=== PATIENT | female | born 1940 | race Caucasian/White ===

== ENCOUNTER 2018-01-22 17:59 | Emergency (ER) | payer OTHER ==
[2018-01-22 18:12] VITALS: BMI 24.1
--- NOTE | 2018-01-22 18:16 | DR.GENAD ---
HPI - PCP Primary Care Physician: Srinath - Complaint/Symptoms Chief Complaint Doctors Comments: Patient states that she was at the doctors office when she became diaphoretic, weak and dizzy. She denies a history of cardiopulmonary disease. She denies recent illness. Chief Complaint:: Pt states she is feeling very weak, dizzy and like she is spinning - Source History Provided: Patient, Family Member - Mode of Arrival Mode of Arrival: Wheelchair - Timing Onset of Chief Complaint: 01/22/18 PMH - PMH Past Medical History: Yes Past Medical History: Hypothyroidism Past Surgical History: Yes Surgical History: Hysterectomy, Ortho Surgery - Family History History of Family Medical Conditions: Yes Family Medical History: Diabetes Mellitus, Cancer, Hypertension - Social History Does patient currently use any type of tobacco product: No Have you used tobacco products in the last 12 months: No Type of Tobacco Use: None Does any household member use tobacco: No Alcohol Use: None Do you use any recreational Drugs:: No Lives With: Spouse Lives Where: Home - infectious screening In the last 2 months have you had wt loss of >10#?: NO Have you had fever, night sweats or hemotysis?: No Have you traveled outside the country in the last 6 months?: No Isolation: Standard ROS - Review of Systems Eyes: No Symptoms Reported ENTM: No Symptoms Reported, Hearing Loss Cardiovascular: No Symptoms Reported, Chest Pain Genitourinary: No Symptoms Reported Neurological: No Symptoms Reported Musculoskeletal: No Symptoms Reported Integumentary: No Symptoms Reported Hematologic/Lymphatic: No Symptoms Reported Endocrine: No Symptoms Reported Psychiatric: No Symptoms Reported All Other Systems: Reviewed and Negative PE - Vital Signs Vitals: Temperature 96.9 F Pulse Rate 69 Respiratory Rate 16 Blood Pressure 182/89 O2 Sat by Pulse Oximetry 99 - General Limitations: No Limitations General Appearance: Alert, In No Apparent Distress - Head Head Exam: Normal Inspection, Atraumatic - Eyes Eye exam: Normal Appearance, PERRL, EOMI - ENT ENT Exam: Normal Exam External Ear Exam: Normal External Inspection TM/Canal Exam: Bilateral Normal Nose Exam: Normal Nose Exam Mouth Exam: Normal Inspection Throat Exam: Normal Inspection - Neck Neck Exam: Normal Inspection, Full ROM - Chest Chest Inspection: Normal Inspection - Respiratory Respiratory Exam: Normal Lung Sounds Bilat Respiratory Exam: Bilateral Clear to Auscultation - Cardiovascular Cardiovascular Exam: Regular Rate, Normal Rhythm - Abdominal Exam Abdominal Exam: Normal Inspection, Normal Bowel Sounds Abdominal Tenderness: negative: RUQ, RLQ, LUQ, LLQ, Epigastrium, Suprapubic, Diffuse, Mild, Moderate, Severe, Other - Extremities Extremities Exam: Normal Inspection, Full ROM - Back Back Exam: Normal Inspection, Full ROM - Neurologic Neurological Exam: Alert, Oriented X3, CN II-XII Intact - Psychiatric Psychiatric Exam: Normal Affect - Skin Skin Exam: Warm, Dry, Intact Course - Reevaluation 1st: Improved - Education/Counseling Educated On: Treatment, Diagnosis, Prognosis, Needs for Follow Up ROR - Labs Reviewed Result Diagrams: 01/22/18 18:25 01/22/18 18: Laboratory: WBC 4.1 X10^3/uL (3.6-10.0) 01/22/18 18: RBC 4.05 X10^6/uL (3.5-5.4) 01/22/18 18: Hgb 12.2 g/dL (12.0-16.0) 01/22/18: Hct 36.3 % (36.0-47.0) 01/22/18: MCV 89.6 fL (80.0-100.0) 01/22/18 18: MCH 30.2 pg (27.0-34.0) 01/22/18 18: MCHC 33.7 g/dL (33.0-35.0) 01/22/18 18: RDW 13.5 % (11.6-16.5) 01/22/18: Plt Count 169 X10^3/uL (150.0-450.0) 01/22/18: MPV 9.0 fL (7.4-11.0) 01/22/18 18: Neut % (Auto) 73.6 % (42.0-75.0) 01/22/18: Lymph % (Auto) 19.2 % (21.0-51.0) L 01/22/18: [place] % (Auto) 7.1 % (0.0-13.0) 01/22/18 18: Eos % (Auto) 0.0 % (0.9-2.9) L 01/22/18 18: Baso % (Auto) 0.1 % (0.2-1.0) L 01/22/18 18:25 Neut # (Auto) 3.0 x10^3/uL (2.2-4.8) 01/22/18 18:25 Lymph # (Auto) 0.8 X10^3/uL (1.3-2.9) L 01/22/18 18:25 [place] # (Auto) 0.3 x10^3/uL (0.3-0.8) 01/22/18 18:25 Eos # (Auto) 0.0 x10^3/uL (0.0-0.2) 01/22/18 18:25 Baso # (Auto) 0.0 X10^3/uL (0.0-0.1) 01/22/18 18:25 Absolute Nucleated RBC 0.1 /100WBC 01/22/18 18:25 D-Dimer 151 ng/mL (0-400) 01/22/18 18:25 Sodium 137 mmol/L (136-145) 01/22/18 18:25 Corrected Sodium 139 mmol/L (136-145) 01/22/18 18:25 Potassium 4.6 mmol/L (3.5-5.1) 01/22/18 18:25 Chloride 105 mmol/L (98-107) 01/22/18 18:25 Carbon Dioxide 21.7 mmol/L (21-32) 01/22/18 18:25 BUN 24 mg/dL (7-18) H 01/22/18 18:25 Creatinine 1.81 mg/dL (0.55-1.02) H 01/22/18 18:25 Est GFR (MDRD) Af Amer 35 (>60) L 01/22/18 18:25 Est GFR (MDRD) Non-Af 29 (>60) L 01/22/18 18:25 Glucose 179 mg/dL (65-99) H 01/22/18 18:25 Calcium 10.2 mg/dL (8.5-10.1) H 01/22/18 18:25 Corrected Calcium TNP 01/22/18 18:25 Total Bilirubin 0.40 mg/dL (0.2-1.0) 01/22/18 18:25 AST 16 Units/L (15-37) 01/22/18 18:25 ALT 17 Units/L (12-78) 01/22/18 18:25 Alkaline Phosphatase 84 Units/L (46-116) 01/22/18 18:25 Creatine Kinase 45 Units/L (26-192) 01/22/18 18:25 CK-MB (CK-2) 1.8 ng/mL (0-4.0) 01/22/18 18:25 CK/CKMB % Calc 4.0 % (<4) 01/22/18 18:25 Troponin I < 0.02 ng/mL (0-1.5) 01/22/18 18:25 Total Protein 7.3 g/dL (6.4-8.2) 01/22/18 18:25 Albumin 4.1 g/dL (3.4-5.0) 01/22/18 18:25 Globulin 3.2 g/dL (2.5-4.5) 01/22/18 18:25 Albumin/Globulin Ratio 1.3 Ratio (1.1-2.1) 01/22/18 18:25 TSH 3rd Generation 0.232 uIU/mL (0.358-3.74) L 01/22/18 18:25 - XRAY XRAY Interpreted by: Radiologist (Chest: No acute cardiopulmonary abnormality; CT Brain: Manzanares-white differentiation is maintained. No visible acute infarct, intracranial hemorrhage, focal or generalized edema, extra-axial collection, hydrocehalus or mass is identified. There is moderate mucosal thickening of the left sphenoid sinus and partial opacification of bilaterall mastoid air cells. The remaining visualized paranasal sinuses are clear. The extracranial structures are grossly unremarkable. Impression: No acute intracranial abnormality. Chronic left sphenoid sinusisis and partial opacification of the bilateral mastoic air cells. Correlate clinically mastoiditis.) - EKG [place]: Normal Rhythm: NSR Block: None Hypertrophy: None ST: Normal - Diagnosis Discharge Problem: Hypothyroidism Qualifiers: Hypothyroidism type: unspecified Qualified Code(s): E03.9 - Hypothyroidism, unspecified Sphenoid sinusitis Qualifiers: Chronicity: acute Recurrence: not specified as recurrent Qualified Code(s): J01.30 - Acute sphenoidal sinusitis, unspecified - Discharge Plan Condition: Stable - Follow ups/Referrals Follow ups/Referrals: Perfecto Yo [Primary Care Provider] - 3 days - Instructions
[2018-01-22 18:35] LABS: BASOPHILS % (AUTO) 0.1 % (0.2-1.0); HEMATOCRIT 36.3 % (36.0-47.0); HEMOGLOBIN 12.2 g/dL (12.0-16.0); LYMPHOCYTES # (AUTO) 0.8 X10^3/uL (1.3-2.9); LYMPHOCYTES % (AUTO) 19.2 % (21.0-51.0); MEAN CORPUSCULAR HEMOGLOBIN 30.2 pg (27.0-34.0); MEAN CORPUSCULAR HGB CONC 33.7 g/dL (33.0-35.0); MEAN CORPUSCULAR VOLUME 89.6 fL (80.0-100.0); MONOCYTES # (AUTO) 0.3 x10^3/uL (0.3-0.8); MONOCYTES % (AUTO) 7.1 % (0.0-13.0); NEUTROPHILS % (AUTO) 73.6 % (42.0-75.0); PLATELET COUNT 169 X10^3/uL (150.0-450.0); RED BLOOD COUNT 4.05 X10^6/uL (3.5-5.4); RED CELL DISTRIBUTION WIDTH 13.5 % (11.6-16.5); WHITE BLOOD COUNT 4.1 X10^3/uL (3.6-10.0)
--- NOTE | 2018-01-22 18:43 | CT ---
CT head without contrast Indication: Weakness, dizziness Technique: Helical CT images of the brain were obtained without IV contrast. Reformatted images in th e coronal and sagittal planes were also generated for review. Comparison: None Findings: Manzanares-white differentiation is maintained. No visible acute infarct, intracranial hemorrhage , focal or generalized edema, extra-axial collection, hydrocephalus or mass is identified. There is m oderate mucosal thickening of the left sphenoid sinus and partial opacification of the bilateral mast oid air cells. The remaining visualized paranasal sinuses are clear. The extracranial structures are grossly unremarkable. Impression: No acute intracranial abnormality. Chronic left sphenoid sinusitis and partial opacification of the bilateral mastoid air cells. Correla te clinically mastoiditis. Reported By:
--- NOTE | 2018-01-22 18:48 | RAD ---
AP Chest Indication: Weakness and dizziness Comparison: None available Findings: The trachea is midline. The cardiac silhouette is unremarkable. The lungs are clear without focal i nfiltrate or effusion. The bony thorax is unremarkable. IMPRESSION: 1. No acute cardiopulmonary abnormality. Reported By:
[2018-01-22 18:53] LABS: BLOOD UREA NITROGEN 24 mg/dL (7-18); CALCIUM 10.2 mg/dL (8.5-10.1); CARBON DIOXIDE 21.7 mmol/L (21-32); CHLORIDE 105 mmol/L (98-107); COR NA(FOR HYPERGLY) 139 mmol/L (136-145); CREATININE 1.81 mg/dL (0.55-1.02); SODIUM 137 mmol/L (136-145); TROPONIN I < 0.02 ng/mL (0-1.5); eGFR BLACK RACES 35 (>60); eGFR NON BLACK RACES 29 (>60)
[2018-01-22 18:58] LABS: ALANINE AMINOTRANSFERASE 17 Units/L (12-78); ALBUMIN 4.1 g/dL (3.4-5.0); ALKALINE PHOSPHATASE 84 Units/L (46-116); ASPARTATE AMINO TRANSFERASE 16 Units/L (15-37); CREATINE KINASE 45 Units/L (26-192); CREATINE KINASE MB 1.8 ng/mL (0-4.0); TOTAL PROTEIN 7.3 g/dL (6.4-8.2); TSH (3RD GENERATION) 0.232 uIU/mL (0.358-3.74)
[2018-01-22 19:26] LABS: BILIRUBIN,URINE NEGATIVE (NEGATIVE); BLOOD/HEMOGLOBIN,URINE 1+ (NEGATIVE); GLUCOSE, URINE NEGATIVE (NEGATIVE); KETONES,URINE NEGATIVE (NEGATIVE); LEUKOCYTE ESTERASE ,URINE NEGATIVE (NEGATIVE); NITRITES,URINE NEGATIVE (NEGATIVE); PROTEIN,URINE NEGATIVE (NEGATIVE); UROBILINOGEN,URINE NORMAL (NORMAL)
[2018-01-22 19:27] LABS: APPEARANCE,URINE CLEAR (CLEAR); COLOR,URINE YELLOW (YELLOW)
[2018-01-22] MEDS ORDERED: LR 1000 ML IV 1,000 ML IV ONE ×2 (19:32→19:34)
[2018-01-22 19:33] LABS: BACTERIA,URINE NEGATIVE /HPF (NEGATIVE); RBC,URINE 0-2 /HPF (NONE SEEN); SQUAMOUS EPITHELIAL CELL,UR RARE /HPF (NEGATIVE)
[2018-01-22 21:03] VITALS: BP 160/67
== END 2018-01-22 21:00 | disposition home or self-care (01) ==
LOC: ER 18:04
DX: E86.0 Dehydration (principal); E03.9 Hypothyroidism, unspecified; J01.80 Other acute sinusitis; R42 Dizziness and giddiness
CPT/HCPCS: 36415; 70450; 71045; 80053; 81001; 82550; 82553; 84443; 84484; 85025; 85378; 93005; 93010; 96365; 99283; 99284; A4222; J7120

== ENCOUNTER 2023-06-12 12:22 | Inpatient (IN) ==
--- NOTE | 2023-06-12 12:35 | DR.AMS ---
HPI Time Seen Time Seen by Provider: 06/12/23 12:35 Reviewed Nurses Notes Reviewed: Yes PMH PMH Past Medical History: Alzheimers, GERD and Hypothyroidism Past Surgical History: Yes Surgical History: Hysterectomy and Ortho Surgery Family History Family Medical History: Diabetes Mellitus, Cancer and Hypertension Social History Do you use any recreational Drugs:: No PE Vitals Vital Signs: Temp Pulse Resp BP Pulse Ox O2 Del Method 06/12/23 14:02 64 99 06/12/23 13:49 82 L 06/12/23 13:31 128/59 06/12/23 13:31 128/59 06/12/23 13:15 71 100 06/12/23 13:09 68 100 06/12/23 12:40 98.1 F 73 20 163/74 100 Room Air ROR Labs Reviewed 06/12/23 12:40 06/12/23 12:40 Laboratory: WBC 6.1 X10^3/uL (3.6-10.0) 06/12/23 12:40 RBC 3.83 X10^6/uL (3.5-5.4) 06/12/23 12:40 Hgb 11.5 g/dL (12.0-16.0) L 06/12/23 12:40 Hct 34.0 % (36.0-47.0) L 06/12/23 12:40 MCV 88.8 fL (80.0-100.0) 06/12/23 12:40 MCH 30.0 pg (27.0-34.0) 06/12/23 12:40 MCHC 33.8 g/dL (33.0-35.0) 06/12/23 12:40 RDW 14.8 % (11.6-16.5) 06/12/23 12:40 Plt Count 239 X10^3/uL (150.0-450.0) 06/12/23 12:40 MPV 9.2 fL (7.4-11.0) 06/12/23 12:40 Neut % (Auto) 56.5 % (42.0-75.0) 06/12/23 12:40 Lymph % (Auto) 36.6 % (21.0-51.0) 06/12/23 12:40 [place] % (Auto) 6.5 % (0.0-13.0) 06/12/23 12:40 Eos % (Auto) 0.1 % (0.9-2.9) L 06/12/23 12:40 Baso % (Auto) 0.3 % (0.2-1.0) 06/12/23 12:40 Neut # (Auto) 3.5 x10^3/uL (2.2-4.8) 06/12/23 12:40 Lymph # (Auto) 2.2 X10^3/uL (1.3-2.9) 06/12/23 12:40 [place] # (Auto) 0.4 x10^3/uL (0.3-0.8) 06/12/23 12:40 Eos # (Auto) 0.0 x10^3/uL (0.0-0.2) 06/12/23 12:40 Baso # (Auto) 0.0 X10^3/uL (0.0-0.1) 06/12/23 12:40 Absolute Nucleated RBC 0.1 /100WBC 06/12/23 12:40 Sodium 140 mmol/L (136-145) 06/12/23 12:40 Corrected Sodium TNP 06/12/23 12:40 Potassium 5.5 mmol/L (3.5-5.1) H 06/12/23 12:40 Chloride 112 mmol/L (98-107) H 06/12/23 12:40 Carbon Dioxide 17.2 mmol/L (21-32) L 06/12/23 12:40 BUN 29 mg/dL (7-18) H 06/12/23 12:40 Creatinine 2.49 mg/dL (0.55-1.02) H 06/12/23 12:40 Est GFR (MDRD) Af Amer 24 (>60) L 06/12/23 12:40 Est GFR (MDRD) Non-Af 20 (>60) L 06/12/23 12:40 Glucose 75 mg/dL (65-99) 06/12/23 12:40 Calcium 10.4 mg/dL (8.5-10.1) H 06/12/23 12:40 Corrected Calcium TNP 06/12/23 12:40 Total Bilirubin 0.50 mg/dL (0.2-1.0) 06/12/23 12:40 AST 37 Units/L (15-37) 06/12/23 12:40 ALT 21 Units/L (12-78) 06/12/23 12:40 Alkaline Phosphatase 92 Units/L (46-116) 06/12/23 12:40 Creatine Kinase 86 Units/L (26-192) 06/12/23 12:40 Troponin I High Sens 47.0 ng/L (4.0-60.0) 06/12/23 12:40 Total Protein 7.0 g/dL (6.4-8.2) 06/12/23 12:40 Albumin 3.5 g/dL (3.4-5.0) 06/12/23 12:40 Globulin 3.5 g/dL (2.5-4.5) 06/12/23 12:40 Albumin/Globulin Ratio 1.0 Ratio (1.1-2.1) L 06/12/23 12:40 Specimen Type Catherized urine 06/12/23 12:47 Urine Color Yellow (YELLOW) 06/12/23 12:47 Urine Appearance Cloudy (CLEAR) 06/12/23 12:47 Urine pH 6.0 (5.0 - 8.0) 06/12/23 12:47 Ur Specific [place] 1.015 (1.000-1.030) 06/12/23 12:47 Urine Protein 2+ (NEGATIVE) 06/12/23 12:47 Urine Glucose (UA) Negative (NEGATIVE) 06/12/23 12:47 Urine Ketones Negative (NEGATIVE) 06/12/23 12:47 Urine Blood 1+ (NEGATIVE) 06/12/23 12:47 Urine Nitrite Positive (NEGATIVE) 06/12/23 12:47 Urine Bilirubin Negative (NEGATIVE) 06/12/23 12:47 Urine Urobilinogen Normal (NORMAL) 06/12/23 12:47 Ur Leukocyte Esterase 2+ (NEGATIVE) 06/12/23 12:47 Urine RBC 3-5 /HPF (0-3) A 06/12/23 12:47 Urine WBC 10-20 /HPF (0-5) A 06/12/23 12:47 Ur Squamous Epith Cells Rare /HPF (NEGATIVE) 06/12/23 12:47 Urine Bacteria 1+ /HPF (NEGATIVE) 06/12/23 12:47 Ur Culture Indicated? Yes/culture set up 06/12/23 12:47 Opioid Opioid Risk Tool Age (Hugo box if 16-45): No History of Preadolescent Sexual Abuse: No Total: 0 Total Score Risk Category: Low Risk Copyright: Ba ESCOBEDO predicting aberrant behaviors Discharge Plan Diagnosis Discharge Problem: Acute dehydration, URI, acute, Altered mental status, Weakness Discharge Plan Patient Disposition: 01 HOME, SELF-CARE Condition: Stable Orders to Discharge Patient Discharge Orders: Transfer (Routine); Ordered 06/12/23 Ordered By: MELISA UNDERWOOD
[2023-06-12 13:00] LABS: BILIRUBIN,URINE NEGATIVE (NEGATIVE); BLOOD/HEMOGLOBIN,URINE 1+ (NEGATIVE); GLUCOSE, URINE NEGATIVE (NEGATIVE); KETONES,URINE NEGATIVE (NEGATIVE); LEUKOCYTE ESTERASE ,URINE 2+ (NEGATIVE); NITRITES,URINE POSITIVE (NEGATIVE); PROTEIN,URINE 2+ (NEGATIVE); UROBILINOGEN,URINE NORMAL (NORMAL)
[2023-06-12 13:13] LABS: APPEARANCE,URINE CLOUDY (CLEAR); COLOR,URINE YELLOW (YELLOW)
[2023-06-12 13:14] LABS: BACTERIA,URINE 1+ /HPF (NEGATIVE); SQUAMOUS EPITHELIAL CELL,UR RARE /HPF (NEGATIVE)
[2023-06-12 13:34] LABS: BASOPHILS % (AUTO) 0.3 % (0.2-1.0); EOSINOPHILS % (AUTO) 0.1 % (0.9-2.9); HEMOGLOBIN 11.5 g/dL (12.0-16.0); LYMPHOCYTES # (AUTO) 2.2 X10^3/uL (1.3-2.9); LYMPHOCYTES % (AUTO) 36.6 % (21.0-51.0); MEAN CORPUSCULAR HGB CONC 33.8 g/dL (33.0-35.0); MEAN CORPUSCULAR VOLUME 88.8 fL (80.0-100.0); MEAN PLATELET VOLUME 9.2 fL (7.4-11.0); MONOCYTES # (AUTO) 0.4 x10^3/uL (0.3-0.8); MONOCYTES % (AUTO) 6.5 % (0.0-13.0); NEUTROPHILS # (AUTO) 3.5 x10^3/uL (2.2-4.8); NEUTROPHILS % (AUTO) 56.5 % (42.0-75.0); PLATELET COUNT 239 X10^3/uL (150.0-450.0); RED BLOOD COUNT 3.83 X10^6/uL (3.5-5.4); RED CELL DISTRIBUTION WIDTH 14.8 % (11.6-16.5); WHITE BLOOD COUNT 6.1 X10^3/uL (3.6-10.0)
[2023-06-12 13:49] LABS: ALANINE AMINOTRANSFERASE 21 Units/L (12-78); ALBUMIN 3.5 g/dL (3.4-5.0); ALKALINE PHOSPHATASE 92 Units/L (46-116); ASPARTATE AMINO TRANSFERASE 37 Units/L (15-37); BLOOD UREA NITROGEN 29 mg/dL (7-18); CALCIUM 10.4 mg/dL (8.5-10.1); CARBON DIOXIDE 17.2 mmol/L (21-32); CHLORIDE 112 mmol/L (98-107); CREATINE KINASE 86 Units/L (26-192); CREATININE 2.49 mg/dL (0.55-1.02); GLUCOSE 75 mg/dL (65-99); SODIUM 140 mmol/L (136-145); eGFR NON BLACK RACES 20 (>60)
[2023-06-12 13:50] LABS: POTASSIUM 5.5 mmol/L (3.5-5.1)
--- NOTE | 2023-06-12 13:58 | EKG ---
Test Reason : HYPERTENSION Blood Pressure : */* mmHG Vent. Rate : 68 BPM Atrial Rate : 68 BPM P-R Int : 194 ms QRS Dur : 78 ms QT Int : 366 ms P-R-T Axes : 39 -9 36 degrees QTc Int : 389 ms Normal sinus rhythm Septal infarct , age undetermined Abnormal ECG No previous ECGs available Confirmed by Prashant Sotelo ([id number]) on 06/13/2023 8:03:59 AM Referred By: Confirmed By: Prashant Sotelo
--- NOTE | 2023-06-12 14:09 | RAD ---
HISTORYAltered mental statusSTUDYChest AP portableCOMPARISONNoneFINDINGSHeart is enlarged. No congestive heart failure is noted. Aorta is ectatic. Lung castellon are clear. No pleural effusions are identified. Bony thorax is unremarkable.IMPRESSIONCardiomegaly without congestive heart failureLungs clearElectronically signed by: CADENCE CHEN (Jun 12, 2023 14:01:39)
--- NOTE | 2023-06-12 14:09 | CT ---
HISTORYAltered mental statusSTUDYCT brain without contrastCOMPARISONNone availableTECHNIQUEMultiple axial images of the brain were obtained from the skull base to the vertex [without] administration of IV contrast.Dose reduction techniques including Automated Exposure Control (AEC) and adjustment of mA and kV were utlized.FINDINGS[No acute intraparenchymal hemorrhage or mass can be identified.] [No extra-axial fluid collections are seen.] [No alteration in the attenuation of the brain parenchyma can be identified to suggest acute or subacute ischemic change.] Mild small vessel ischemic changes and moderate cortical atrophy are noted. [The ventricular system is symmetric and nondilated.] [The extracranial structures are grossly unremarkable.]IMPRESSION[No acute intracranial process can be identified.]Electronically signed by: ISABEL DIXON (Jun 12, 2023 14:01:45)
[2023-06-12] MEDS ORDERED: NS 1,000 ML IV 1,000 ML ONE (15:42)
[2023-06-12] MEDS ORDERED: ROCEPHIN VIAL 1 GRAM ONE (15:42)
[2023-06-12] MEDS ORDERED: ROCEPHIN VIAL 1 GRAM IVP SCH (15:45)
[2023-06-12] MEDS: NS 1,000 ML IV 1,000 ML IV SCH (15:49)
[2023-06-12] MEDS ORDERED: PROTONIX TAB 40 MG PO SCH (21:00)
[2023-06-12] MEDS: MEGACE PO SCH (21:05)
[2023-06-12] MEDS: EXELON PO SCH (21:05)
[2023-06-12] MEDS ORDERED: VALIUM INJ IVP PRN (21:12)
[2023-06-12] MEDS ORDERED: RESTORIL CAP 15 MG PO PRN (21:12)
[2023-06-13] MEDS: NS 1,000 ML IV 1,000 ML IV SCH ×3 (00:45→17:10)
[2023-06-13 05:23] LABS: BASOPHILS % (AUTO) 0.5 % (0.2-1.0); EOSINOPHILS % (AUTO) 0.1 % (0.9-2.9); HEMATOCRIT 30.2 % (36.0-47.0); HEMOGLOBIN 10.4 g/dL (12.0-16.0); LYMPHOCYTES # (AUTO) 2.1 X10^3/uL (1.3-2.9); LYMPHOCYTES % (AUTO) 32.5 % (21.0-51.0); MEAN CORPUSCULAR HEMOGLOBIN 30.3 pg (27.0-34.0); MEAN CORPUSCULAR HGB CONC 34.4 g/dL (33.0-35.0); MEAN PLATELET VOLUME 8.1 fL (7.4-11.0); MONOCYTES # (AUTO) 0.3 x10^3/uL (0.3-0.8); MONOCYTES % (AUTO) 5.1 % (0.0-13.0); NEUTROPHILS % (AUTO) 61.8 % (42.0-75.0); PLATELET COUNT 217 X10^3/uL (150.0-450.0); RED BLOOD COUNT 3.43 X10^6/uL (3.5-5.4); RED CELL DISTRIBUTION WIDTH 14.8 % (11.6-16.5); WHITE BLOOD COUNT 6.5 X10^3/uL (3.6-10.0)
[2023-06-13 05:41] LABS: ALANINE AMINOTRANSFERASE 17 Units/L (12-78); ALBUMIN 3.1 g/dL (3.4-5.0); ALKALINE PHOSPHATASE 84 Units/L (46-116); ASPARTATE AMINO TRANSFERASE 19 Units/L (15-37); BLOOD UREA NITROGEN 25 mg/dL (7-18); CALCIUM 9.7 mg/dL (8.5-10.1); CARBON DIOXIDE 16.7 mmol/L (21-32); CHLORIDE 112 mmol/L (98-107); COR CA(FOR HYPOALB) 10.4 mg/dL (8.5-10.1); CREATININE 2.19 mg/dL (0.55-1.02); GLUCOSE 90 mg/dL (65-99); POTASSIUM 4.5 mmol/L (3.5-5.1); SODIUM 141 mmol/L (136-145); TOTAL PROTEIN 6.3 g/dL (6.4-8.2); eGFR NON BLACK RACES 23 (>60)
[2023-06-13] MEDS: EXELON PO SCH ×3 (06:26→21:10)
[2023-06-13] MEDS ORDERED: ZYPREXA IM ONE (08:15)
[2023-06-13] MEDS: ROCEPHIN VIAL 1 GRAM 1 G in NS 100 ML IV 100 ML IV SCH (09:36)
[2023-06-13] MEDS: PROTONIX INJ 40 MG VIAL IVP SCH ×2 (09:36→21:13)
[2023-06-13] MEDS ORDERED: HALDOL INJ IM PRN (10:38)
[2023-06-13] MEDS: COZAAR PO SCH (12:21)
[2023-06-13] MEDS: MEGACE PO SCH ×2 (12:21→21:09)
[2023-06-13] MEDS: LOVENOX INJ 30 MG SYR SC SCH (12:22)
--- NOTE | 2023-06-13 13:31 | DR.H&P ---
H&P - History & Physical for Day of: H&P Date: 06/12/23 - Chief Complaint Chief Complaint: AMS, WEAKNESS - History of Present Illness History of Present Illness: IS A 83 YEAR OLD PATIENT OF OURS. SHE PRESENTED TO THE ER WITH HER FAMILY REPORTING THAT SHE HAS HAD INCREASED CONFUSION OVER THE PAST 2-3 DAYS. SHE DOES HAVE A CURRENT HX OF END STAGE DEMENTIA, HOWEVER, FAMILY REPORTS THAT SYMPTOMS ARE WORSENING. THEY SEEM TO THINK THAT HER SPEECH HAS CHANGED AND THAT SHE IS SLURRING WORDS MORE THAN NORMAL. THEY ALSO REPORT THAT PATIENT FELL AT HOME LAST WEEK AND HAS BEEN COMPLAINING OF LOW BACK PAIN AND BILATERAL HIP PAIN. PATIENT LIVES AT HOME ALONE WITH HER SPOUSE. THEY DO HAVE A SITTER THAT STAYS FOR THE MAJORITY OF THE DAYTIME HOURS. PATIENTS DAUGHTER AND SPOUSE EXPRESS CONCERNS THAT THEY MAY NO LONGER BE ABLE TO PHYSICALLY PROVIDE CARE FOR PATIENT IN THE HOME, IT HAS BECOME TOO PHYSICALLY DEMANDING FOR THE SPOUSE. HER PMH INCLUDES: ALZHEIMERS, DEMENTIA, GERD, HYPOTHYROIDISM, AND HYSTERECTOMY. ON ARRIVAL TO THE HOSPITAL, HER VITALS WERE: 98.1-73-20-100%-163/74. LABS WERE OBTAINED. WBC 6.1, RBC 3.83, HGB 11.5, HCT 34.0, PLT COUNT 239, SODIUM 140, POTASSIUM 5.5, CHLORIDE 112, CARBON DIOXIDE 17.2, BUN 29, CREATININE 2.49, GLUCOSE 75, CALCIUM 10.4, TOTAL BILI 0.50, AST 37, ALT 21, ALK PHOS 92, CREATINE KINASE 86, TOTAL PROTEIN 7.0, ALBUMIN 3.5. URINALYSIS WAS OBTAINED AND REVEALED: WBC 10-20, RBC 3-5, BACTERIA 1+, LEUKOCYTES 2+, NITRITE POSITIVE. A URINE CULTURE WAS SET UP. A BRAIN CT WITHOUT CONTRAST WAS OBTAINED AND REVEALED: No acute intracranial process can be identified. A CHEST XRAY WAS OBTAINED AND REVEALED: Cardiomegaly without congestive heart failure. Lungs clear. EKG WAS OBTAINED AND REVEALED: NORMAL SINUS RHYTHM WITH HR 68 BPM. IN THE ER, SHE WAS GIVEN ROCPEPHIN 1G IV X 1. SHE WAS ADMITTED TO THE HOSPITAL FOR FURTHER EVALUATION AND TREATMENT OF DEHYDRATION, UTI, GENERALIZED WEAKNESS, ALTERED MENTAL STATUS. SHE WAS STARTED ON NORMAL SALINE AT 125 ML/HR, ROCEPHIN 1G IV DAILY, PROTONIX 40MG IV BID, LOVENOX 30MG SC DAILY, HALDOL 2.5MG M Q4H PRN. HER HOME MEDICATIONS OF ZYPREXA, LOSARTAN, MEGACE, RIVASTIGMINE WERE RESUMED. WE WILL OBTAIN A LUMBAR SPINE XRAY AND BILATERAL HIP XRAYS DUE TO PERSISTENT PAIN SINCE FALL. OTHERWISE, WE WILL FOLLOW UP WITH AM LABS AND CONTINUE TO MONITOR. TIME SPENT ON CLINICAL ASSESSMENT, REVIEWING LABS AND IMAGING, DECISION MAKING, AND DOCUMENTATION GREATER THAN 75 MINUTES. - Past Medical History Past Medical History: Alzheimers, Dementia, GERD, Hypothyroidism - Past Surgical History Surgical History: Hysterectomy, Ortho Surgery - Family History Family Medical History: Diabetes Mellitus, Cancer, Hypertension - Social History Does patient currently use any type of tobacco product: No Have you used tobacco products in the last 12 months: No Type of Tobacco Use: None Does any household member use tobacco: No Alcohol Use: None Drug Use: None - Review of Systems Constitutional: Weakness Eyes: No Symptoms Reported ENT: No Symptoms Reported Respiratory: No Symptoms Reported Cardiovascular: No Symptoms Reported Gastrointestinal: No Symptoms Reported Genitourinary: No Symptoms Reported Musculoskeletal: Back Pain, Other (BILATERAL HIP PAIN ) Skin: No Symptoms Reported Neurological: Weakness Oriented: Not Oriented Eyes: Normal Ear: Normal Nose: Normal Throat: Normal Respiratory: Diminished Throughout Cardiovascular: Normal : Normal Auscultation: Bowel Sounds: Normal Palpation: Normal Tenderness: Normal Skin: Decreased Turgur Musculoskeletal: Right, Left, Hip, Back:Lumbar, Tender Psychiatric: Other Mood Description: Anxious Affect: Anxious Speech Pattern: Inappropriate - Assessment/Plan (1) Acute dehydration Status: Acute Plan: ADMIT, NORMAL SALINE AT 125 ML/HR, ROCEPHIN 1G IV DAILY, PROTONIX 40MG IV BID, LOVENOX 30MG SC DAILY, HALDOL 2.5MG M Q4H PRN. HER HOME MEDICATIONS OF ZYPREXA, LOSARTAN, MEGACE, RIVASTIGMINE WERE RESUMED. (2) Urinary tract infection Qualifiers: Urinary tract infection type: acute cystitis Hematuria presence: without hematuria Qualified Code(s): N30.00 - Acute cystitis without hematuria Status: Acute (3) Altered mental status Qualifiers: Altered mental status type: transient alteration of awareness Status: Acute (4) Generalized weakness Status: Acute (5) Dementia Qualifiers: Dementia type: Alzheimer's Alzheimer's disease onset: unspecified onset Dementia severity: severe Dementia behavioral or psychological symptom: with agitation Qualified Code(s): G30.9 - Alzheimer's disease, unspecified; F02.C11 - Dementia in other diseases classified elsewhere, severe, with agitation Status: Chronic (6) GERD (gastroesophageal reflux disease) Qualifiers: Esophagitis presence: esophagitis presence not specified Qualified Code(s): K21.9 - Gastro-esophageal reflux disease without esophagitis Status: Chronic (7) HTN (hypertension) Qualifiers: Hypertension type: primary hypertension Qualified Code(s): I10 - Essential (primary) hypertension Status: Chronic - Allergies Allergies/Adverse Reactions: Allergies Allergy/AdvReac Type Severity Reaction Status Date / Time No Known Allergies Allergy Verified 04/17/19 14:28 - Medications Home Medications: Home Medications Medication Instructions Recorded Confirmed losartan 50 mg tablet 50 mg PO DAILY 06/12/23 06/12/23 olanzapine 2.5 mg tablet 2.5 mg PO BID 06/12/23 06/12/23 rivastigmine tartrate 3 mg capsule 3 mg PO TID 06/12/23 06/12/23 Previous Rx's Medication Instructions Recorded megestrol 40 mg tablet 40 mg PO BID #60 tabs 03/09/18 pantoprazole 40 mg tablet,delayed 40 mg PO BID #60 tabs 03/09/18 release (Protonix)
--- NOTE | 2023-06-13 16:42 | RAD ---
EXAM:X-ray pelvis and bilateral hips, AP view pelvis and frogleg lateral views of the hipsHISTORY:PAIN, FALL, altered mental status-COMPARISON:CT 12/01/2022FINDINGS:No widening of the symphysis pubis or SI joints.Study is limited due to difficulty positioning the patient.Mild arthritic changes are seen in the hips.No fracture or dislocation is seen.IMPRESSION:Limited exam reveals no fracture. Consider further evaluation with pelvic CT if suspicion for fracture persists.THIS IS AN ELECTRONICALLY VERIFIED FINAL REPORT06/13/2023 4:39 PM - Electronically signed by Mitul Andrew MD
--- NOTE | 2023-06-13 16:47 | RAD ---
EXAM:X-ray lumbar spine five viewsHISTORY:PAIN, altered mental status, fall-COMPARISON:None.FINDINGS:Study is limited due to patient's size and difficulty positioning the patient. There is mild dextroscoliosis in the lower lumbar spine that is probably chronic given the large left lateral osteophytes at L4-5. There is mild retrolisthesis of L 3 with respect to L4 and L2 likely from arthritic facet changes. However, pars defect can not be completely excluded. Vacuum disc phenomena is seen at L3-4. No compression fracture is seen.IMPRESSION:Exam is limited. Scoliosis is probably chronic. L3 retrolisthesis is probably from arthritic facet changes. No fracture is identified. Consider evaluation with CT if suspicion for fracture persists.THIS IS AN ELECTRONICALLY VERIFIED FINAL REPORT06/13/2023 4:43 PM - Electronically signed by Mitul Andrew MD
[2023-06-13] MEDS: HALDOL INJ IVP PRN ×2 (17:05→21:14)
[2023-06-14] MEDS: NS 1,000 ML IV 1,000 ML IV SCH ×3 (00:36→17:04)
[2023-06-14] MEDS: HALDOL INJ IVP PRN ×2 (01:02→18:52)
[2023-06-14] MEDS: EXELON PO SCH (05:14)
[2023-06-14 05:19] LABS: BASOPHILS % (AUTO) 0.1 % (0.2-1.0); EOSINOPHILS % (AUTO) 0.1 % (0.9-2.9); HEMATOCRIT 31.2 % (36.0-47.0); HEMOGLOBIN 10.8 g/dL (12.0-16.0); LYMPHOCYTES # (AUTO) 2.1 X10^3/uL (1.3-2.9); LYMPHOCYTES % (AUTO) 33.1 % (21.0-51.0); MEAN CORPUSCULAR HEMOGLOBIN 30.2 pg (27.0-34.0); MEAN CORPUSCULAR HGB CONC 34.6 g/dL (33.0-35.0); MEAN CORPUSCULAR VOLUME 87.5 fL (80.0-100.0); MEAN PLATELET VOLUME 8.9 fL (7.4-11.0); MONOCYTES # (AUTO) 0.2 x10^3/uL (0.3-0.8); MONOCYTES % (AUTO) 3.7 % (0.0-13.0); PLATELET COUNT 216 X10^3/uL (150.0-450.0); RED BLOOD COUNT 3.57 X10^6/uL (3.5-5.4); WHITE BLOOD COUNT 6.3 X10^3/uL (3.6-10.0)
[2023-06-14 05:31] LABS: ALANINE AMINOTRANSFERASE 16 Units/L (12-78); ALBUMIN 2.8 g/dL (3.4-5.0); ALKALINE PHOSPHATASE 81 Units/L (46-116); ASPARTATE AMINO TRANSFERASE 21 Units/L (15-37); BLOOD UREA NITROGEN 18 mg/dL (7-18); CALCIUM 9.1 mg/dL (8.5-10.1); CARBON DIOXIDE 16.3 mmol/L (21-32); COR CA(FOR HYPOALB) 10.1 mg/dL (8.5-10.1); CREATININE 1.93 mg/dL (0.55-1.02); GLUCOSE 90 mg/dL (65-99); POTASSIUM 4.4 mmol/L (3.5-5.1); SODIUM 142 mmol/L (136-145); TOTAL PROTEIN 5.8 g/dL (6.4-8.2); eGFR NON BLACK RACES 26 (>60)
[2023-06-14 05:33] LABS: CHLORIDE 114 mmol/L (98-107)
[2023-06-14] MEDS: PROTONIX INJ 40 MG VIAL IVP SCH ×2 (08:47→20:25)
[2023-06-14] MEDS: ROCEPHIN VIAL 1 GRAM 1 G in NS 100 ML IV 100 ML IV SCH (08:47)
[2023-06-14] MEDS: LOVENOX INJ 30 MG SYR SC SCH (08:47)
[2023-06-14] MEDS: MEGACE PO SCH ×2 (08:53→20:15)
[2023-06-14] MEDS: COZAAR PO SCH (08:53)
[2023-06-14] MEDS ORDERED: CATAPRES-TTS-1 TD SCH (11:00)
[2023-06-14] MEDS: EXELON PATCH TD SCH (11:51)
[2023-06-14 15:05] VITALS: BMI 19.1
[2023-06-14] MEDS: CHECK PATCH XX SCH (20:14)
--- NOTE | 2023-06-14 21:25 | PCM.PROG ---
Progress Note - Progress Note for Day of Date of Exam: 06/14/23 - Subjective Subjective: IS CURRENTLY INPATIENT STATUS. SHE HAS A PMH OF HER PMH INCLUDES: ALZHEIMERS, DEMENTIA, GERD, HYPOTHYROIDISM, AND HYSTERECTOMY. SHE WAS ADMITTED TO THE HOSPITAL FOR TREATMENT OF ACUTE DEHYDRATION, UTI, AMS, AND GENERALIZED WEAKNESS. TODAY, SHE IS LYING IN BED WITH EYES CLOSED ON MORNING ROUNDS. SHE AWAKENS TO VERBAL STIMUI, BUT IS DISORIENTED. NURSING STAFF REPORTS THAT SHE HAS BEEN UNABLE TO SWALLOW HER PILLS. PATIENT IS HOLDING THEM IN HER MOUTH INSTEADY OF SWALLOWING THEM. ON EXAMINATION, HEART IS REGULAR IN RATE AND RHYTHM. BILATERAL LUNGS ARE NOTED WITH DIMINISHED LUNG SOUNDS THROUGHOUT. ABDOMEN IS FLAT, SOFT, AND NON-TENDER WITH NORMAL BOWEL SOUNDS NOTED IN ALL QUADRANTS. NORMAL RANGE OF MOTION NOTED TO UPPER AND LOWER EXTREMITIES WITH NO EDEMA NOTED. HER VITALS THIS MORNING ARE: 98.7-87-20-96%-194/88. LABS WERE OBTAINED. WBC 6.3, RBC 3.57, HGB 10.8, HCT 31.2, PLT COUNT 216, SODIUM 141, POTASSIUM 4.4, CHLORIDE 114, BUN 18, CREATININE 1.93, GLUCOSE 90, CALCIUM 9.1, AST 21, ALT 16, ALK PHOS 81, TOTAL PROTEIN 5.8, ALBUMIN 2.8. LUMBAR SPINE AND HIP XRAYS WERE OBTAINED YESTERDAY AND WERE NEGATIVE. HER SPOUSE REPORTS THAT HE IS NO LONGER ABLE TO CARE FOR HER AT HOME ALONE. HE REQUEST PLACEMENT FOR HER AT [facility]. SHE IS CURRENTLY RECEIVING NORMAL SALINE AT 125 ML/HR, ROCEPHIN 1G IV DAILY, PROTONIX 40MG IV BID, LOVENOX 30MG SC DAILY, HALDOL 2.5MG IV Q4H [place]. HER HOME MEDICATIONS OF ZYPREXA, LOSARTAN, MEGACE, RIVASTIGMINE WERE RESUMED. WE WILL CHANGE THE RIVASTIGMINE TO A DAILY PATCH. WE WILL DISCONTINUE THE LOSARTAN AND ADD A CATAPRES 0.1MG/HR TD PATCH. WE WILL DISCUSS [facility] CARE PLACEMENT WITH CASE MANAGEMENT AND THE [facility]. OTHERWISE, WE WILL FOLLOW UP WITH AM LABS AND CONTINUE TO MONITOR. - Past Medical Family Social History Past Med/Fam/Surg Hx: No changes since H&P Allergies: Allergies No Known Allergies Allergy (Verified 04/17/19 14:28) - Review of Systems ROS: No change since H&P - Vital Signs and I&O's Vital Signs: Vital Signs Temperature 97.6 F Temperature 98.0 F Pulse Rate 76 Pulse Rate 74 Pulse Rate 83 Pulse Rate 81 Pulse Rate 81 Pulse Rate 77 Pulse Rate 79 Respiratory Rate 20 Blood Pressure 163/73 Blood Pressure 175/86 Blood Pressure 157/75 Blood Pressure 164/104 O2 Sat by Pulse Oximetry 98 O2 Sat by Pulse Oximetry 99 O2 Sat by Pulse Oximetry 97 O2 Sat by Pulse Oximetry 100 O2 Sat by Pulse Oximetry 100 O2 Sat by Pulse Oximetry 100 O2 Sat by Pulse Oximetry 100 Intake and Output: Intake & Output 06/12/23 06/13/23 06/14/23 06/15/23 11:59 11:59 11:59 11:59 Intake Total 1568 / 1568 3423 / 3423 843 / 843 Output Total 740 / 740 Balance 1568 / 1568 2683 / 2683 843 / 843 - Physical Exam Oriented: Not Oriented Eyes: Normal Ear: Normal Nose: Normal Throat: Normal Respiratory: Generalized, Diminished Cardiovascular: Normal : Normal Auscultation: Bowel Sounds: Normal Palpation: Normal Tenderness: Normal Skin: Decreased [place] Musculoskeletal: Right, Left, Hip, Back:Lumbar, Tender Psychiatric: Other Mood Description: Anxious Affect: Anxious Speech Pattern: Clear, Inappropriate - Laboratory and Diagnostics Result Diagrams: 06/14/23 04:28 06/14/23 04:28 Labs: 06/12/23 12:47 Urine,Catheterized Urine Culture - Final Citrobacter [facility] WBC 6.3 X10^3/uL (3.6-10.0) 06/14/23 04:28 RBC 3.57 X10^6/uL (3.5-5.4) 06/14/23 04:28 Hgb 10.8 g/dL (12.0-16.0) L 06/14/23 04:28 Hct 31.2 % (36.0-47.0) L 06/14/23 04:28 MCV 87.5 fL (80.0-100.0) 06/14/23 04:28 MCH 30.2 pg (27.0-34.0) 06/14/23 04:28 MCHC 34.6 g/dL (33.0-35.0) 06/14/23 04:28 RDW 15.0 % (11.6-16.5) 06/14/23 04:28 Plt Count 216 X10^3/uL (150.0-450.0) 06/14/23 04:28 MPV 8.9 fL (7.4-11.0) 06/14/23 04:28 Neut % (Auto) 63.0 % (42.0-75.0) 06/14/23 04:28 Lymph % (Auto) 33.1 % (21.0-51.0) 06/14/23 04:28 [place] % (Auto) 3.7 % (0.0-13.0) 06/14/23 04:28 Eos % (Auto) 0.1 % (0.9-2.9) L 06/14/23 04:28 Baso % (Auto) 0.1 % (0.2-1.0) L 06/14/23 04:28 Neut # (Auto) 4.0 x10^3/uL (2.2-4.8) 06/14/23 04:28 Lymph # (Auto) 2.1 X10^3/uL (1.3-2.9) 06/14/23 04:28 [place] # (Auto) 0.2 x10^3/uL (0.3-0.8) L 06/14/23 04:28 Eos # (Auto) 0.0 x10^3/uL (0.0-0.2) 06/14/23 04:28 Baso # (Auto) 0.0 X10^3/uL (0.0-0.1) 06/14/23 04:28 Absolute Nucleated RBC 0.0 /100WBC 06/14/23 04:28 Sodium 142 mmol/L (136-145) 06/14/23 04:28 Corrected Sodium TNP 06/14/23 04:28 Potassium 4.4 mmol/L (3.5-5.1) 06/14/23 04:28 Chloride 114 mmol/L (98-107) H 06/14/23 04:28 Carbon Dioxide 16.3 mmol/L (21-32) L 06/14/23 04:28 BUN 18 mg/dL (7-18) 06/14/23 04:28 Creatinine 1.93 mg/dL (0.55-1.02) H 06/14/23 04:28 Est GFR (MDRD) Af Amer 32 (>60) L 06/14/23 04:28 Est GFR (MDRD) Non-Af 26 (>60) L 06/14/23 04:28 Glucose 90 mg/dL (65-99) 06/14/23 04:28 Calcium 9.1 mg/dL (8.5-10.1) 06/14/23 04:28 Corrected Calcium 10.1 mg/dL (8.5-10.1) 06/14/23 04:28 Total Bilirubin 0.10 mg/dL (0.2-1.0) L 06/14/23 04:28 AST 21 Units/L (15-37) 06/14/23 04:28 ALT 16 Units/L (12-78) 06/14/23 04:28 Alkaline Phosphatase 81 Units/L (46-116) 06/14/23 04:28 Creatine Kinase 86 Units/L (26-192) 06/12/23 12:40 Troponin I High Sens 47.0 ng/L (4.0-60.0) 06/12/23 12:40 Total Protein 5.8 g/dL (6.4-8.2) L 06/14/23 04:28 Albumin 2.8 g/dL (3.4-5.0) L 06/14/23 04:28 Globulin 3.0 g/dL (2.5-4.5) 06/14/23 04:28 Albumin/Globulin Ratio 0.9 Ratio (1.1-2.1) L 06/14/23 04:28 Specimen Type Catherized urine 06/12/23 12:47 Urine Color Yellow (YELLOW) 06/12/23 12:47 Urine Appearance Cloudy (CLEAR) 06/12/23 12:47 Urine pH 6.0 (5.0 - 8.0) 06/12/23 12:47 Ur Specific [place] 1.015 (1.000-1.030) 06/12/23 12:47 Urine Protein 2+ (NEGATIVE) 06/12/23 12:47 Urine Glucose (UA) Negative (NEGATIVE) 06/12/23 12:47 Urine Ketones Negative (NEGATIVE) 06/12/23 12:47 Urine Blood 1+ (NEGATIVE) 06/12/23 12:47 Urine Nitrite Positive (NEGATIVE) 06/12/23 12:47 Urine Bilirubin Negative (NEGATIVE) 06/12/23 12:47 Urine Urobilinogen Normal (NORMAL) 06/12/23 12:47 Ur Leukocyte Esterase 2+ (NEGATIVE) 06/12/23 12:47 Urine RBC 3-5 /HPF (0-3) A 06/12/23 12:47 Urine WBC 10-20 /HPF (0-5) A 06/12/23 12:47 Ur Squamous Epith Cells Rare /HPF (NEGATIVE) 06/12/23 12:47 Urine Bacteria 1+ /HPF (NEGATIVE) 06/12/23 12:47 Ur Culture Indicated? Yes/culture set up 06/12/23 12:47 - Plan (1) Acute dehydration Status: Acute Plan: NORMAL SALINE AT 125 ML/HR, ROCEPHIN 1G IV DAILY, PROTONIX 40MG IV BID, LOVENOX 30MG SC DAILY, HALDOL 2.5MG M Q4H PRN, CLONIDINE PATCH WEEKLY, RIVASTIGMINE PATCH DAILY. HER HOME MEDICATIONS OF ZYPREXA AND MEGACE WERE RESUMED. (2) Urinary tract infection Status: Acute Qualifiers: Urinary tract infection type: acute cystitis Hematuria presence: without hematuria Qualified Code(s): N30.00 - Acute cystitis without hematuria (3) Altered mental status Status: Acute Qualifiers: Altered mental status type: transient alteration of awareness (4) Generalized weakness Status: Acute (5) Dementia Status: Chronic Qualifiers: Dementia type: Alzheimer's Alzheimer's disease onset: unspecified onset Dementia severity: severe Dementia behavioral or psychological symptom: with a gitation Qualified Code(s): G30.9 - Alzheimer's disease, unspecified; F02.C11 - Dementia in other diseases classified elsewhere, severe, with agitation (6) GERD (gastroesophageal reflux disease) Status: Chronic Qualifiers: Esophagitis presence: esophagitis presence not specified Qualified Code(s): K21.9 - Gastro-esophageal reflux disease without esophagitis (7) HTN (hypertension) Status: Chronic Qualifiers: Hypertension type: primary hypertension Qualified Code(s): I10 - Essential (primary) hypertension
[2023-06-15] MEDS: HALDOL INJ IVP PRN ×2 (01:03→21:12)
[2023-06-15 05:40] LABS: ALANINE AMINOTRANSFERASE 15 Units/L (12-78); ALBUMIN 2.6 g/dL (3.4-5.0); ALKALINE PHOSPHATASE 82 Units/L (46-116); ASPARTATE AMINO TRANSFERASE 22 Units/L (15-37); BLOOD UREA NITROGEN 14 mg/dL (7-18); CALCIUM 9.1 mg/dL (8.5-10.1); CARBON DIOXIDE 17.9 mmol/L (21-32); COR CA(FOR HYPOALB) 10.2 mg/dL (8.5-10.1); GLUCOSE 76 mg/dL (65-99); MAGNESIUM 1.1 mg/dL (2.0-2.9); SODIUM 142 mmol/L (136-145); TOTAL PROTEIN 5.5 g/dL (6.4-8.2); eGFR NON BLACK RACES 31 (>60)
[2023-06-15 05:45] LABS: CHLORIDE 115 mmol/L (98-107)
[2023-06-15 06:21] LABS: PLATELET COUNT 176 X10^3/uL (150.0-450.0)
[2023-06-15 06:26] LABS: BASOPHILS % (AUTO) 0.6 % (0.2-1.0); EOSINOPHILS % (AUTO) 0.1 % (0.9-2.9); HEMOGLOBIN 10.6 g/dL (12.0-16.0); LYMPHOCYTES # (AUTO) 2.6 X10^3/uL (1.3-2.9); LYMPHOCYTES % (AUTO) 35.4 % (21.0-51.0); MEAN CORPUSCULAR HEMOGLOBIN 30.4 pg (27.0-34.0); MEAN CORPUSCULAR HGB CONC 35.2 g/dL (33.0-35.0); MEAN CORPUSCULAR VOLUME 86.4 fL (80.0-100.0); MEAN PLATELET VOLUME 9.5 fL (7.4-11.0); MONOCYTES # (AUTO) 0.4 x10^3/uL (0.3-0.8); MONOCYTES % (AUTO) 4.8 % (0.0-13.0); NEUTROPHILS # (AUTO) 4.4 x10^3/uL (2.2-4.8); NEUTROPHILS % (AUTO) 59.1 % (42.0-75.0); RED BLOOD COUNT 3.48 X10^6/uL (3.5-5.4); RED CELL DISTRIBUTION WIDTH 15.4 % (11.6-16.5); WHITE BLOOD COUNT 7.4 X10^3/uL (3.6-10.0)
[2023-06-15] MEDS: NS 1,000 ML IV 1,000 ML IV SCH ×4 (06:35→16:52)
[2023-06-15] MEDS ORDERED: CONSULT PHARMACY - POTASSIUM & MAGNESIUM XX SCH (07:00)
[2023-06-15 07:42] LABS: PLATELET MORPHOLOGY COMMENT NORMAL (NORMAL)
[2023-06-15] MEDS: MEGACE PO SCH ×2 (08:22→21:00)
[2023-06-15] MEDS: ROCEPHIN VIAL 1 GRAM 1 G in NS 100 ML IV 100 ML IV SCH (08:22)
[2023-06-15] MEDS: EXELON PATCH TD SCH (08:22)
[2023-06-15] MEDS: LOVENOX INJ 30 MG SYR SC SCH (08:23)
[2023-06-15] MEDS: PROTONIX INJ 40 MG VIAL IVP SCH ×2 (08:23→21:11)
[2023-06-15] MEDS ORDERED: MAG-OX TAB PO SCH (09:00)
[2023-06-15] MEDS ORDERED: CATAPRES-TTS-2 TD SCH (09:00)
[2023-06-15] MEDS: MAGNESIUM SULFATE 1 GRAM/100 mL PREMIX 1 G/100 ML BAG IV SCH ×4 (09:08→12:24)
--- NOTE | 2023-06-15 13:20 | PCM.PROG ---
Progress Note - Progress Note for Day of Date of Exam: 06/15/23 - Subjective Subjective: IS CURRENTLY INPATIENT STATUS. SHE HAS A PMH OF HER PMH INCLUDES: ALZHEIMERS, DEMENTIA, GERD, HYPOTHYROIDISM, AND HYSTERECTOMY. SHE WAS ADMITTED TO THE HOSPITAL FOR TREATMENT OF ACUTE DEHYDRATION, UTI, AMS, AND GENERALIZED WEAKNESS. TODAY, SHE IS LYING IN BED WITH EYES CLOSED ON MORNING ROUNDS. SHE IS DIFFICULT TO AWAKEN THIS MORNING. ON EXAMINATION, HEART IS REGULAR IN RATE AND RHYTHM. BILATERAL LUNGS ARE NOTED WITH DIMINISHED LUNG SOUNDS THROUGHOUT. ABDOMEN IS FLAT, SOFT, AND NON-TENDER WITH NORMAL BOWEL SOUNDS NOTED IN ALL QUADRANTS. NORMAL RANGE OF MOTION NOTED TO UPPER AND LOWER EXTREMITIES WITH NO EDEMA NOTED. HER VITALS THIS MORNING ARE: 97.4-69-14-99%-181/79. LABS WERE OBTAINED. WBC 7.4, RBC 3.48, HGB 10.6, HCT 30.0, PLT COUNT 176, SODIUM 142, POTASSIUM 5.0, CHLORIDE 115, BUN 14, CREATININE 1.70, GLUCOSE 76, AST 22, ALT 15, ALK PHOS 82, TOTAL PROTEIN 5.5, ALBUMIN 2.6. HER SPOUSE REPORTS THAT HE IS NO LONGER ABLE TO CARE FOR HER AT HOME ALONE. HE REQUEST PLACEMENT FOR HER AT [facility]. SHE IS CURRENTLY RECEIVING NORMAL SALINE AT 125 ML/HR, ROCEPHIN 1G IV DAILY, PROTONIX 40MG IV BID, LOVENOX 30MG SC DAILY, HALDOL 2.5MG IV Q4H PRN, RIVASTIGMINE PATCH, AND A CATAPRES 0.1MG/HR TD PATCH. HER HOME MEDICATIONS OF ZYPREXA, MEGACE. TODAY, WE WILL INCREASE HER C ATAPRES PATCH TO 0.2MG/HR. SHE HAS BEEN ACCEPTED TO [facility]. WE WILL CONTINUE WITH CURRENT PLAN OF CARE TODAY. OTHERWISE, WE WILL FOLLOW UP WITH AM LABS AND CONTINUE TO MONITOR. TIME SPENT ON CLINICAL ASSESSMENT, REVIEWING LABS AND IMAGING, DECISION MAKING, AND DOCUMENTATION GREATER THAN 45 MINUTES. - Past Medical Family Social History Past Med/Fam/Surg Hx: No changes since H&P Allergies: Allergies No Known Allergies Allergy (Verified 04/17/19 14:28) - Review of Systems ROS: No change since H&P - Vital Signs and I&O's Vital Signs: Vital Signs Temperature 97.6 F Temperature 97.4 F Pulse Rate 75 Respiratory Rate 20 Blood Pressure 160/67 Blood Pressure 173/70 Blood Pressure 173/70 Blood Pressure 181/79 O2 Sat by Pulse Oximetry 95 Intake and Output: Intake & Output 06/13/23 06/14/23 06/15/23 06/16/23 11:59 11:59 11:59 11:59 Intake Total 1568 / 1568 3423 / 3423 1571 / 1571 Output Total 740 / 740 Balance 1568 / 1568 2683 / 2683 1571 / 1571 - Physical Exam Oriented: Not Oriented Eyes: Normal Ear: Normal Nose: Normal Throat: Normal Respiratory: Generalized, Diminished Cardiovascular: Normal : Normal Auscultation: Bowel Sounds: Normal Palpation: Normal Tenderness: Normal Skin: Normal Musculoskeletal: Right, Left, Hip, Back:Lumbar, Tender Psychiatric: Other Mood Description: Anxious Affect: Anxious Speech Pattern: Clear, Inappropriate - Laboratory and Diagnostics Result Diagrams: 06/15/23 05:56 06/15/23 04:39 Labs: 06/12/23 12:47 Urine,Catheterized Urine Culture - Final Citrobacter Freundii [facility] WBC 7.4 X10^3/uL (3.6-10.0) 06/15/23 05:56 RBC 3.48 X10^6/uL (3.5-5.4) L 06/15/23 05:56 Hgb 10.6 g/dL (12.0-16.0) L 06/15/23 05:56 Hct 30.0 % (36.0-47.0) L 06/15/23 05:56 MCV 86.4 fL (80.0-100.0) 06/15/23 05:56 MCH 30.4 pg (27.0-34.0) 06/15/23 05:56 MCHC 35.2 g/dL (33.0-35.0) H 06/15/23 05:56 RDW 15.4 % (11.6-16.5) 06/15/23 05:56 Plt Count 176 X10^3/uL (150.0-450.0) 06/15/23 05:56 Plt Count Comment Adequate (ADEQUATE) 06/15/23 05:56 MPV 9.5 fL (7.4-11.0) 06/15/23 05:56 Neut % (Auto) 59.1 % (42.0-75.0) 06/15/23 05:56 Lymph % (Auto) 35.4 % (21.0-51.0) 06/15/23 05:56 [place] % (Auto) 4.8 % (0.0-13.0) 06/15/23 05:56 Eos % (Auto) 0.1 % (0.9-2.9) L 06/15/23 05:56 Baso % (Auto) 0.6 % (0.2-1.0) 06/15/23 05:56 Neut # (Auto) 4.4 x10^3/uL (2.2-4.8) 06/15/23 05:56 Lymph # (Auto) 2.6 X10^3/uL (1.3-2.9) 06/15/23 05:56 [place] # (Auto) 0.4 x10^3/uL (0.3-0.8) 06/15/23 05:56 Eos # (Auto) 0.0 x10^3/uL (0.0-0.2) 06/15/23 05:56 Baso # (Auto) 0.0 X10^3/uL (0.0-0.1) 06/15/23 05:56 Absolute Nucleated RBC 0.2 /100WBC 06/15/23 05:56 Plt Clumps, EDTA Few 06/15/23 05:56 Plt Morphology Comment Normal (NORMAL) 06/15/23 05:56 RBC Morphology Normal (NORMAL) 06/15/23 05:56 Sodium 142 mmol/L (136-145) 06/15/23 04:39 Corrected Sodium TNP 06/15/23 04:39 Potassium 5.0 mmol/L (3.5-5.1) 06/15/23 04:39 Chloride 115 mmol/L (98-107) H* 06/15/23 04:39 Carbon Dioxide 17.9 mmol/L (21-32) L 06/15/23 04:39 BUN 14 mg/dL (7-18) 06/15/23 04:39 Creatinine 1.70 mg/dL (0.55-1.02) H 06/15/23 04:39 Est GFR (MDRD) Af Amer 37 (>60) L 06/15/23 04:39 Est GFR (MDRD) Non-Af 31 (>60) L 06/15/23 04:39 Glucose 76 mg/dL (65-99) 06/15/23 04:39 Calcium 9.1 mg/dL (8.5-10.1) 06/15/23 04:39 Corrected Calcium 10.2 mg/dL (8.5-10.1) H 06/15/23 04:39 Magnesium 1.1 mg/dL (2.0-2.9) L 06/15/23 04:39 Total Bilirubin 0.20 mg/dL (0.2-1.0) 06/15/23 04:39 AST 22 Units/L (15-37) 06/15/23 04:39 ALT 15 Units/L (12-78) 06/15/23 04:39 Alkaline Phosphatase 82 Units/L (46-116) 06/15/23 04:39 Creatine Kinase 86 Units/L (26-192) 06/12/23 12:40 Troponin I High Sens 47.0 ng/L (4.0-60.0) 06/12/23 12:40 Total Protein 5.5 g/dL (6.4-8.2) L 06/15/23 04:39 Albumin 2.6 g/dL (3.4-5.0) L 06/15/23 04:39 Globulin 2.9 g/dL (2.5-4.5) 06/15/23 04:39 Albumin/Globulin Ratio 0.9 Ratio (1.1-2.1) L 06/15/23 04:39 Specimen Type Catherized urine 06/12/23 12:47 Urine Color Yellow (YELLOW) 06/12/23 12:47 Urine Appearance Cloudy (CLEAR) 06/12/23 12:47 Urine pH 6.0 (5.0 - 8.0) 06/12/23 12:47 Ur Specific [place] 1.015 (1.000-1.030) 06/12/23 12:47 Urine Protein 2+ (NEGATIVE) 06/12/23 12:47 Urine Glucose (UA) Negative (NEGATIVE) 06/12/23 12:47 Urine Ketones Negative (NEGATIVE) 06/12/23 12:47 Urine Blood 1+ (NEGATIVE) 06/12/23 12:47 Urine Nitrite Positive (NEGATIVE) 06/12/23 12:47 Urine Bilirubin Negative (NEGATIVE) 06/12/23 12:47 Urine Urobilinogen Normal (NORMAL) 06/12/23 12:47 Ur Leukocyte Esterase 2+ (NEGATIVE) 06/12/23 12:47 Urine RBC 3-5 /HPF (0-3) A 06/12/23 12:47 Urine WBC 10-20 /HPF (0-5) A 06/12/23 12:47 Ur Squamous Epith Cells Rare /HPF (NEGATIVE) 06/12/23 12:47 Urine Bacteria 1+ /HPF (NEGATIVE) 06/12/23 12:47 Ur Culture Indicated? Yes/culture set up 06/12/23 12:47 - Plan (1) Acute dehydration Status: Acute Plan: NORMAL SALINE AT 125 ML/HR, ROCEPHIN 1G IV DAILY, PROTONIX 40MG IV BID, LOVENOX 30MG SC DAILY, HALDOL 2.5MG M Q4H PRN, CLONIDINE PATCH WEEKLY, RIVASTIGMINE PATCH DAILY. HER HOME MEDICATIONS OF ZYPREXA AND MEGACE WERE RESUM ED. (2) Urinary tract infection Status: Acute Qualifiers: Urinary tract infection type: acute cystitis Hematuria presence: without hematuria Qualified Code(s): N30.00 - Acute cystitis without hematuria (3) Altered mental status Status: Acute Qualifiers: Altered mental status type: transient alteration of awareness (4) Generalized weakness Status: Acute (5) Dementia Status: Chronic Qualifiers: Dementia type: Alzheimer's Alzheimer's disease onset: unspecified onset Dementia severity: severe Dementia behavioral or psychological symptom: with agitation Qualified Code(s): G30.9 - Alzheimer's disease, unspecified; F02.C11 - Dementia in other diseases classified elsewhere, severe, with agitation (6) GERD (gastroesophageal reflux disease) Status: Chronic Qualifiers: Esophagitis presence: esophagitis presence not specified Qualified Code(s): K21.9 - Gastro-esophageal reflux disease without esophagitis (7) HTN (hypertension) Status: Chronic Qualifiers: Hypertension type: primary hypertension Qualified Code(s): I10 - Essential (primary) hypertension
[2023-06-15] MEDS: CHECK PATCH XX SCH (21:00)
[2023-06-16] MEDS: NS 1,000 ML IV 1,000 ML IV SCH ×4 (00:24→17:33)
[2023-06-16 05:03] LABS: BASOPHILS % (AUTO) 0.6 % (0.2-1.0); EOSINOPHILS % (AUTO) 0.1 % (0.9-2.9); HEMATOCRIT 31.6 % (36.0-47.0); HEMOGLOBIN 11.1 g/dL (12.0-16.0); LYMPHOCYTES # (AUTO) 1.8 X10^3/uL (1.3-2.9); MEAN CORPUSCULAR HEMOGLOBIN 30.9 pg (27.0-34.0); MEAN CORPUSCULAR HGB CONC 35.3 g/dL (33.0-35.0); MEAN CORPUSCULAR VOLUME 87.6 fL (80.0-100.0); MEAN PLATELET VOLUME 9.1 fL (7.4-11.0); MONOCYTES # (AUTO) 0.3 x10^3/uL (0.3-0.8); MONOCYTES % (AUTO) 5.7 % (0.0-13.0); NEUTROPHILS # (AUTO) 3.3 x10^3/uL (2.2-4.8); NEUTROPHILS % (AUTO) 60.6 % (42.0-75.0); PLATELET COUNT 202 X10^3/uL (150.0-450.0); RED CELL DISTRIBUTION WIDTH 15.7 % (11.6-16.5); WHITE BLOOD COUNT 5.5 X10^3/uL (3.6-10.0)
[2023-06-16 05:17] LABS: ALANINE AMINOTRANSFERASE 16 Units/L (12-78); ALBUMIN 2.8 g/dL (3.4-5.0); ALKALINE PHOSPHATASE 89 Units/L (46-116); ASPARTATE AMINO TRANSFERASE 25 Units/L (15-37); BLOOD UREA NITROGEN 14 mg/dL (7-18); CALCIUM 9.7 mg/dL (8.5-10.1); CARBON DIOXIDE 18.5 mmol/L (21-32); CHLORIDE 113 mmol/L (98-107); COR CA(FOR HYPOALB) 10.7 mg/dL (8.5-10.1); CREATININE 1.69 mg/dL (0.55-1.02); GLUCOSE 77 mg/dL (65-99); SODIUM 141 mmol/L (136-145); TOTAL PROTEIN 5.9 g/dL (6.4-8.2); eGFR NON BLACK RACES 31 (>60)
[2023-06-16] MEDS: MEGACE PO SCH ×2 (08:38→20:20)
[2023-06-16] MEDS: LOVENOX INJ 30 MG SYR SC SCH (08:39)
[2023-06-16] MEDS: PROTONIX INJ 40 MG VIAL IVP SCH ×2 (08:39→20:20)
[2023-06-16] MEDS: EXELON PATCH TD SCH (08:39)
[2023-06-16] MEDS: ROCEPHIN VIAL 1 GRAM 1 G in NS 100 ML IV 100 ML IV SCH (08:39)
[2023-06-16] MEDS ORDERED: TobraDEX OPHTH OPHTH 1 DOSE LEFTEYE SCH (11:15)
[2023-06-16] MEDS: TobraDEX OPHTH OPHTH 1 DOSE LEFTEYE SCH ×2 (12:25→20:21)
[2023-06-16] MEDS: CATAPRES-TTS-3 TD SCH (12:25)
--- NOTE | 2023-06-16 13:25 | PCM.PROG ---
Progress Note - Progress Note for Day of Date of Exam: 06/16/23 - Subjective Subjective: IS CURRENTLY INPATIENT STATUS. SHE HAS A PMH OF HER PMH INCLUDES: ALZHEIMERS, DEMENTIA, GERD, HYPOTHYROIDISM, AND HYSTERECTOMY. SHE WAS ADMITTED TO THE HOSPITAL FOR TREATMENT OF ACUTE DEHYDRATION, UTI, AMS, AND GENERALIZED WEAKNESS. TODAY, SHE IS LYING IN BED WITH EYES CLOSED ON MORNING ROUNDS. SHE AWAKENS TO VERBAL STIMULI, BUT QUICKLY FALLS BACK TO SLEEP. ON EXAMINATION TODAY, THERE IS REDNESS TO THE LEFT EYELID. IT DOES APPEAR TO BE A LITTLE PUFFY WELL. HEART IS REGULAR IN RATE AND RHYTHM. BILATERAL LUNGS ARE NOTED WITH DIMINISHED LUNG SOUNDS THROUGHOUT. ABDOMEN IS FLAT, SOFT, AND NON- TENDER WITH NORMAL BOWEL SOUNDS NOTED IN ALL QUADRANTS. NORMAL RANGE OF MOTION NOTED TO UPPER AND LOWER EXTREMITIES WITH NO EDEMA NOTED. HER VITALS THIS MORNING ARE: 97.6-80-20-99%-188/81. LABS WERE OBTAINED. WBC 5.5, RBC 3.60, HGB 11.1, HCT 31.6, PLT COUNT 202, SODIUM 141, POTASSIUM 5.0, CHLORIDE 113, CARBON DIOXIDE 18.5, BUN 14, CREATININE 1.69, GLUCOSE 77, CALCIUM 9.7, TOTAL BILI 0.20, AST 25, ALT 16, ALK PHOS 89, TOTAL PROTEIN 5.9, ALBUMIN2.8. SHE HAS BEEN UNABLE TO TAKE HER ORAL MEDICATIONS DUE TO INCREASED DROWSINESS. TODAY, WE WILL DISCONTINUE THE HALDOL AND ALLOW HER TO WAKE UP SOME. SHE WILL BE GOING TO [facility] FOLLOWING DISCHARGE. SHE IS CURRENTLY RECEIVING NORMAL SALINE AT 125 ML/HR, ROCEPHIN 1G IV DAILY, PROTONIX 40MG IV BID, LOVENOX 30MG SC DAILY, HALDOL 2.5MG IV Q4H PRN, RIVASTIGMINE PATCH, AND A CATAPRES 0.2MG/HR TD PATCH. HER HOME MEDICATIONS OF ZYPREXA, MEGACE. TODAY, WE WILL INCREASE HER CATAPRES PATCH TO 0.3MG/HR. WE WILL ADD TOBRADEX OINTMENT TO THE LEFT EYE BID. OTHERWISE, WE WILL CONTINUE WITH CURRENT PLAN OF CARE TODAY. WE WILL FOLLOW UP WITH AM LABS AND CONTINUE TO MONITOR. TIME SPENT ON CLINICAL ASSESSMENT, REVIEWING LABS AND IMAGING, DECISION MAKING, AND DOCUMENTATION GREATER THAN 45 MINUTES. - Past Medical Family Social History Past Med/Fam/Surg Hx: No changes since H&P Allergies: Allergies No Known Allergies Allergy (Verified 04/17/19 14:28) - Review of Systems ROS: No change since H&P - Vital Signs and I&O's Vital Signs: Vital Signs Temperature 97.6 F Temperature 97.6 F Pulse Rate 88 Pulse Rate 87 Pulse Rate 77 Pulse Rate 87 Pulse Rate 80 Pulse Rate 82 Pulse Rate 107 Respiratory Rate 25 Respiratory Rate 23 Respiratory Rate 31 Respiratory Rate 18 Respiratory Rate 20 Respiratory Rate 20 Respiratory Rate 36 Blood Pressure 161/87 Blood Pressure 188/81 O2 Sat by Pulse Oximetry 100 O2 Sat by Pulse Oximetry 100 O2 Sat by Pulse Oximetry 100 O2 Sat by Pulse Oximetry 100 O2 Sat by Pulse Oximetry 99 O2 Sat by Pulse Oximetry 100 O2 Sat by Pulse Oximetry 100 Intake and Output: Intake & Output 06/14/23 06/15/23 06/16/23 06/17/23 11:59 11:59 11:59 11:59 Intake Total 3423 / 3423 1571 / 1571 1292 / 1292 Output Total 740 / 740 Balance 2683 / 2683 1571 / 1571 1292 / 1292 - Physical Exam Oriented: Not Oriented Eyes: Normal Ear: Normal Nose: Normal Throat: Normal Respiratory: Generalized, Diminished Cardiovascular: Normal : Normal Auscultation: Bowel Sounds: Normal Palpation: Normal Tenderness: Normal Skin: Normal Musculoskeletal: Right, Left, Hip, Back:Lumbar, Tender Psychiatric: Other Mood Description: Anxious Affect: Anxious Speech Pattern: Clear, Inappropriate - Laboratory and Diagnostics Result Diagrams: 06/16/23 04:30 06/16/23 04:30 Labs: 06/12/23 12:47 Urine,Catheterized Urine Culture - Final Citrobacter Freundii [facility] WBC 5.5 X10^3/uL (3.6-10.0) 06/16/23 04:30 RBC 3.60 X10^6/uL (3.5-5.4) 06/16/23 04:30 Hgb 11.1 g/dL (12.0-16.0) L 06/16/23 04:30 Hct 31.6 % (36.0-47.0) L 06/16/23 04:30 MCV 87.6 fL (80.0-100.0) 06/16/23 04:30 MCH 30.9 pg (27.0-34.0) 06/16/23 04:30 MCHC 35.3 g/dL (33.0-35.0) H 06/16/23 04:30 RDW 15.7 % (11.6-16.5) 06/16/23 04:30 Plt Count 202 X10^3/uL (150.0-450.0) 06/16/23 04:30 Plt Count Comment Adequate (ADEQUATE) 06/15/23 05:56 MPV 9.1 fL (7.4-11.0) 06/16/23 04:30 Neut % (Auto) 60.6 % (42.0-75.0) 06/16/23 04:30 Lymph % (Auto) 33.0 % (21.0-51.0) 06/16/23 04:30 [place] % (Auto) 5.7 % (0.0-13.0) 06/16/23 04:30 Eos % (Auto) 0.1 % (0.9-2.9) L 06/16/23 04:30 Baso % (Auto) 0.6 % (0.2-1.0) 06/16/23 04:30 Neut # (Auto) 3.3 x10^3/uL (2.2-4.8) 06/16/23 04:30 Lymph # (Auto) 1.8 X10^3/uL (1.3-2.9) 06/16/23 04:30 [place] # (Auto) 0.3 x10^3/uL (0.3-0.8) 06/16/23 04:30 Eos # (Auto) 0.0 x10^3/uL (0.0-0.2) 06/16/23 04:30 Baso # (Auto) 0.0 X10^3/uL (0.0-0.1) 06/16/23 04:30 Absolute Nucleated RBC 0.1 /100WBC 06/16/23 04:30 Plt Clumps, EDTA Few 06/15/23 05:56 Plt Morphology Comment Normal (NORMAL) 06/15/23 05:56 RBC Morphology Normal (NORMAL) 06/15/23 05:56 Sodium 141 mmol/L (136-145) 06/16/23 04:30 Corrected Sodium TNP 06/16/23 04:30 Potassium 5.0 mmol/L (3.5-5.1) 06/16/23 04:30 Chloride 113 mmol/L (98-107) H 06/16/23 04:30 Carbon Dioxide 18.5 mmol/L (21-32) L 06/16/23 04:30 BUN 14 mg/dL (7-18) 06/16/23 04:30 Creatinine 1.69 mg/dL (0.55-1.02) H 06/16/23 04:30 Est GFR (MDRD) Af Amer 37 (>60) L 06/16/23 04:30 Est GFR (MDRD) Non-Af 31 (>60) L 06/16/23 04:30 Glucose 77 mg/dL (65-99) 06/16/23 04:30 Calcium 9.7 mg/dL (8.5-10.1) 06/16/23 04:30 Corrected Calcium 10.7 mg/dL (8.5-10.1) H 06/16/23 04:30 Magnesium 2.0 mg/dL (2.0-2.9) 06/16/23 04:30 Total Bilirubin 0.20 mg/dL (0.2-1.0) 06/16/23 04:30 AST 25 Units/L (15-37) 06/16/23 04:30 ALT 16 Units/L (12-78) 06/16/23 04:30 Alkaline Phosphatase 89 Units/L (46-116) 06/16/23 04:30 Creatine Kinase 86 Units/L (26-192) 06/12/23 12:40 Troponin I High Sens 47.0 ng/L (4.0-60.0) 06/12/23 12:40 Total Protein 5.9 g/dL (6.4-8.2) L 06/16/23 04:30 Albumin 2.8 g/dL (3.4-5.0) L 06/16/23 04:30 Globulin 3.1 g/dL (2.5-4.5) 06/16/23 04:30 Albumin/Globulin Ratio 0.9 Ratio (1.1-2.1) L 06/16/23 04:30 Specimen Type Catherized urine 06/12/23 12:47 Urine Color Yellow (YELLOW) 06/12/23 12:47 Urine Appearance Cloudy (CLEAR) 06/12/23 12:47 Urine pH 6.0 (5.0 - 8.0) 06/12/23 12:47 Ur Specific [place] 1.015 (1.000-1.030) 06/12/23 12:47 Urine Protein 2+ (NEGATIVE) 06/12/23 12:47 Urine Glucose (UA) Negative (NEGATIVE) 06/12/23 12:47 Urine Ketones Negative (NEGATIVE) 06/12/23 12:47 Urine Blood 1+ (NEGATIVE) 06/12/23 12:47 Urine Nitrite Positive (NEGATIVE) 06/12/23 12:47 Urine Bilirubin Negative (NEGATIVE) 06/12/23 12:47 Urine Urobilinogen Normal (NORMAL) 06/12/23 12:47 Ur Leukocyte Esterase 2+ (NEGATIVE) 06/12/23 12:47 Urine RBC 3-5 /HPF (0-3) A 06/12/23 12:47 Urine WBC 10-20 /HPF (0-5) A 06/12/23 12:47 Ur Squamous Epith Cells Rare /HPF (NEGATIVE) 06/12/23 12:47 Urine Bacteria 1+ /HPF (NEGATIVE) 06/12/23 12:47 Ur Culture Indicated? Yes/culture set up 06/12/23 12:47 - Plan (1) Acute dehydration Status: Acute Plan: NORMAL SALINE AT 125 ML/HR, ROCEPHIN 1G IV DAILY, PROTONIX 40MG IV BID, LOVENOX 30MG SC DAILY, CLONIDINE PATCH WEEKLY, RIVASTIGMINE PATCH DAILY. HER HOME MEDICATIONS OF ZYPREXA AND MEGACE WERE RESUMED. (2) Urinary tract infection Status: Acute Qualifiers: Urinary tract infection type: acute cystitis Hematuria presence: without hematuria Qualified Code(s): N30.00 - Acute cystitis without hematuria (3) Altered mental status Status: Acute Qualifiers: Altered mental status type: transient alteration of awareness (4) Generalized weakness Status: Acute (5) Dementia Status: Chronic Qualifiers: Dementia type: Alzheimer's Alzheimer's disease onset: unspecified onset Dementia severity: severe Dementia behavioral or psychological symptom: with agitation Qualified Code(s): G30.9 - Alzheimer's disease, unspecified; F02.C11 - Dementia in other diseases classified elsewhere, severe, with agitation (6) GERD (gastroesophageal reflux disease) Status: Chronic Qualifiers: Esophagitis presence: esophagitis presence not specified Qualified Code(s): K21.9 - Gastro-esophageal reflux disease without esophagitis (7) HTN (hypertension) Status: Chronic Qualifiers: Hypertension type: primary hypertension Qualified Code(s): I10 - Essential (primary) hypertension
[2023-06-16] MEDS: ZyPREXA TAB 5 MG PO SCH (19:47)
[2023-06-16] MEDS: CHECK PATCH XX SCH (22:54)
[2023-06-17] MEDS: NS 1,000 ML IV 1,000 ML IV SCH ×4 (02:59→17:44)
[2023-06-17 05:35] LABS: BASOPHILS % (AUTO) 0.2 % (0.2-1.0); EOSINOPHILS % (AUTO) 0.1 % (0.9-2.9); HEMATOCRIT 29.8 % (36.0-47.0); HEMOGLOBIN 10.5 g/dL (12.0-16.0); LYMPHOCYTES % (AUTO) 35.4 % (21.0-51.0); MEAN CORPUSCULAR HEMOGLOBIN 30.8 pg (27.0-34.0); MEAN CORPUSCULAR HGB CONC 35.4 g/dL (33.0-35.0); MEAN CORPUSCULAR VOLUME 87.1 fL (80.0-100.0); MEAN PLATELET VOLUME 9.6 fL (7.4-11.0); MONOCYTES # (AUTO) 0.3 x10^3/uL (0.3-0.8); MONOCYTES % (AUTO) 5.3 % (0.0-13.0); NEUTROPHILS # (AUTO) 3.3 x10^3/uL (2.2-4.8); PLATELET COUNT 221 X10^3/uL (150.0-450.0); RED BLOOD COUNT 3.42 X10^6/uL (3.5-5.4); RED CELL DISTRIBUTION WIDTH 15.8 % (11.6-16.5); WHITE BLOOD COUNT 5.6 X10^3/uL (3.6-10.0)
[2023-06-17 05:52] LABS: ALANINE AMINOTRANSFERASE 24 Units/L (12-78); ALBUMIN 2.7 g/dL (3.4-5.0); ALKALINE PHOSPHATASE 86 Units/L (46-116); ASPARTATE AMINO TRANSFERASE 29 Units/L (15-37); BLOOD UREA NITROGEN 17 mg/dL (7-18); CALCIUM 9.7 mg/dL (8.5-10.1); CARBON DIOXIDE 17.6 mmol/L (21-32); CHLORIDE 113 mmol/L (98-107); COR CA(FOR HYPOALB) 10.7 mg/dL (8.5-10.1); CREATININE 1.66 mg/dL (0.55-1.02); GLUCOSE 80 mg/dL (65-99); POTASSIUM 5.1 mmol/L (3.5-5.1); SODIUM 140 mmol/L (136-145); TOTAL PROTEIN 5.8 g/dL (6.4-8.2); eGFR NON BLACK RACES 32 (>60)
[2023-06-17] MEDS: LOVENOX INJ 30 MG SYR SC SCH (08:54)
[2023-06-17] MEDS: ROCEPHIN VIAL 1 GRAM 1 G in NS 100 ML IV 100 ML IV SCH (08:54)
[2023-06-17] MEDS: PROTONIX INJ 40 MG VIAL IVP SCH ×2 (08:55→20:16)
[2023-06-17] MEDS: ZyPREXA TAB 5 MG PO SCH ×2 (08:55→10:00)
[2023-06-17] MEDS: EXELON PATCH TD SCH (08:55)
[2023-06-17] MEDS: TobraDEX OPHTH OPHTH 1 DOSE LEFTEYE SCH ×2 (08:55→20:16)
[2023-06-17] MEDS: MEGACE PO SCH ×2 (08:55→20:16)
[2023-06-17] MEDS ORDERED: ZyPREXA TAB 5 MG PO SCH (18:00)
[2023-06-17] MEDS: CHECK PATCH XX SCH (20:15)
--- NOTE | 2023-06-17 22:58 | PCM.PROG ---
Progress Note Progress Note for Day of Date of Exam: 06/17/23 Subjective Subjective: IS CURRENTLY INPATIENT STATUS. SHE HAS A PMH OF HER PMH INCLUDES: ALZHEIMERS, DEMENTIA, GERD, HYPOTHYROIDISM, AND HYSTERECTOMY. SHE WAS ADMITTED TO THE HOSPITAL FOR TREATMENT OF ACUTE DEHYDRATION, UTI, AMS, AND GENERALIZED WEAKNESS. THIS MORNING SHE APPEARS TO HAVE IMPROVEMENT IN HER SYMPTOMS. NO ACUTE EVENTS OVERNIGHT. HER MEDICATIONS WERE CHANGED TO ZYPREXA THAT IS HELPING WITH MOOD. SHE WILL BE GOING TO [facility] FOLLOWING DISCHARGE. SHE IS CURRENTLY RECEIVING NORMAL SALINE AT 125 ML/HR, ROCEPHIN 1G IV DAILY, PROTONIX 40MG IV BID, LOVENOX 30MG SC DAILY, RIVASTIGMINE PATCH, AND A CATAPRES 0.3MG/HR TD PATCH. SHE IS RECEIVING TOBRADEX OINTMENT TO THE LEFT EYE BID. OTHERWISE, WE WILL CONTINUE WITH CURRENT PLAN OF CARE TODAY. WE WILL FOLLOW UP WITH AM LABS AND CONTINUE TO MONITOR. Past Medical Family Social History Past Med/Fam/Surg Hx: No changes since H&P Allergies: Allergies No Known Allergies Allergy (Verified 04/17/19 14:28) Review of Systems ROS: No change since H&P Vital Signs and I&O's Vital Signs: Vital Signs Temperature 98.9 F Temperature 98.1 F Pulse Rate 94 Pulse Rate 78 Pulse Rate 77 Pulse Rate 75 Respiratory Rate 17 Respiratory Rate 22 Respiratory Rate 29 Respiratory Rate 26 Blood Pressure 178/99 Blood Pressure 148/71 Blood Pressure 153/69 O2 Sat by Pulse Oximetry 100 O2 Sat by Pulse Oximetry 100 O2 Sat by Pulse Oximetry 100 O2 Sat by Pulse Oximetry 100 Intake and Output: Intake & Output 06/14/23 06/15/23 06/16/23 06/17/23 23:59 23:59 23:59 23:59 Intake Total 2246 / 2246 952 / 952 1328 / 1328 1416 / 1416 Output Total 190 / 190 Balance 2055 952 / 952 1328 / 1328 1416 / 1416 Physical Exam Oriented: Not Oriented Eyes: Normal Ear: Normal Nose: Normal Throat: Normal Respiratory: Generalized and Diminished Cardiovascular: Normal : Normal Auscultation: Bowel Sounds: Normal Tenderness: Normal Skin: Normal Musculoskeletal: Right, Left, Hip, Back:Lumbar and Tender Psychiatric: Other Mood Description: Anxious Affect: Anxious Speech Pattern: Clear and Inappropriate Laboratory and Diagnostics 06/17/23 04:20 06/17/23 04:20 Labs: 06/12/23 12:47 Urine,Catheterized Urine Culture - Final Citrobacter Freundii Laboratory WBC 5.6 X10^3/uL (3.6-10.0) 06/17/23 04:20 RBC 3.42 X10^6/uL (3.5-5.4) L 06/17/23 04:20 Hgb 10.5 g/dL (12.0-16.0) L 06/17/23 04:20 Hct 29.8 % (36.0-47.0) L 06/17/23 04:20 MCV 87.1 fL (80.0-100.0) 06/17/23 04:20 MCH 30.8 pg (27.0-34.0) 06/17/23 04:20 MCHC 35.4 g/dL (33.0-35.0) H 06/17/23 04:20 RDW 15.8 % (11.6-16.5) 06/17/23 04:20 Plt Count 221 X10^3/uL (150.0-450.0) 06/17/23 04:20 Plt Count Comment Adequate (ADEQUATE) 06/15/23 05:56 MPV 9.6 fL (7.4-11.0) 06/17/23 04:20 Neut % (Auto) 59.0 % (42.0-75.0) 06/17/23 04:20 Lymph % (Auto) 35.4 % (21.0-51.0) 06/17/23 04:20 [place] % (Auto) 5.3 % (0.0-13.0) 06/17/23 04:20 Eos % (Auto) 0.1 % (0.9-2.9) L 06/17/23 04:20 Baso % (Auto) 0.2 % (0.2-1.0) 06/17/23 04:20 Neut # (Auto) 3.3 x10^3/uL (2.2-4.8) 06/17/23 04:20 Lymph # (Auto) 2.0 X10^3/uL (1.3-2.9) 06/17/23 04:20 [place] # (Auto) 0.3 x10^3/uL (0.3-0.8) 06/17/23 04:20 Eos # (Auto) 0.0 x10^3/uL (0.0-0.2) 06/17/23 04:20 Baso # (Auto) 0.0 X10^3/uL (0.0-0.1) 06/17/23 04:20 Absolute Nucleated RBC 0.1 /100WBC 06/17/23 04:20 Plt Clumps, EDTA Few 06/15/23 05:56 Plt Morphology Comment Normal (NORMAL) 06/15/23 05:56 RBC Morphology Normal (NORMAL) 06/15/23 05:56 Sodium 140 mmol/L (136-145) 06/17/23 04:20 Corrected Sodium TNP 06/17/23 04:20 Potassium 5.1 mmol/L (3.5-5.1) 06/17/23 04:20 Chloride 113 mmol/L (98-107) H 06/17/23 04:20 Carbon Dioxide 17.6 mmol/L (21-32) L 06/17/23 04:20 BUN 17 mg/dL (7-18) 06/17/23 04:20 Creatinine 1.66 mg/dL (0.55-1.02) H 06/17/23 04:20 Est GFR (MDRD) Af Amer 38 (>60) L 06/17/23 04:20 Est GFR (MDRD) Non-Af 32 (>60) L 06/17/23 04:20 Glucose 80 mg/dL (65-99) 06/17/23 04:20 Calcium 9.7 mg/dL (8.5-10.1) 06/17/23 04:20 Corrected Calcium 10.7 mg/dL (8.5-10.1) H 06/17/23 04:20 Magnesium 2.0 mg/dL (2.0-2.9) 06/16/23 04:30 Total Bilirubin 0.20 mg/dL (0.2-1.0) 06/17/23 04:20 AST 29 Units/L (15-37) 06/17/23 04:20 ALT 24 Units/L (12-78) 06/17/23 04:20 Alkaline Phosphatase 86 Units/L (46-116) 06/17/23 04:20 Creatine Kinase 86 Units/L (26-192) 06/12/23 12:40 Troponin I High Sens 47.0 ng/L (4.0-60.0) 06/12/23 12:40 Total Protein 5.8 g/dL (6.4-8.2) L 06/17/23 04:20 Albumin 2.7 g/dL (3.4-5.0) L 06/17/23 04:20 Globulin 3.1 g/dL (2.5-4.5) 06/17/23 04:20 Albumin/Globulin Ratio 0.9 Ratio (1.1-2.1) L 06/17/23 04:20 Specimen Type Catherized urine 06/12/23 12:47 Urine Color Yellow (YELLOW) 06/12/23 12:47 Urine Appearance Cloudy (CLEAR) 06/12/23 12:47 Urine pH 6.0 (5.0 - 8.0) 06/12/23 12:47 Ur Specific [place] 1.015 (1.000-1.030) 06/12/23 12:47 Urine Protein 2+ (NEGATIVE) 06/12/23 12:47 Urine Glucose (UA) Negative (NEGATIVE) 06/12/23 12:47 Urine Ketones Negative (NEGATIVE) 06/12/23 12:47 Urine Blood 1+ (NEGATIVE) 06/12/23 12:47 Urine Nitrite Positive (NEGATIVE) 06/12/23 12:47 Urine Bilirubin Negative (NEGATIVE) 06/12/23 12:47 Urine Urobilinogen Normal (NORMAL) 06/12/23 12:47 Ur Leukocyte Esterase 2+ (NEGATIVE) 06/12/23 12:47 Urine RBC 3-5 /HPF (0-3) A 06/12/23 12:47 Urine WBC 10-20 /HPF (0-5) A 06/12/23 12:47 Ur Squamous Epith Cells Rare /HPF (NEGATIVE) 06/12/23 12:47 Urine Bacteria 1+ /HPF (NEGATIVE) 06/12/23 12:47 Ur Culture Indicated? Yes/culture set up 06/12/23 12:47 Plan (1) Acute dehydration: Status: Acute Plan: NORMAL SALINE AT 125 ML/HR, ROCEPHIN 1G IV DAILY, PROTONIX 40MG IV BID, LOVENOX 30MG SC DAILY, CLONIDINE PATCH WEEKLY, RIVASTIGMINE PATCH DAILY. HER HOME MEDICATIONS OF ZYPREXA AND MEGACE WERE RESUMED. (2) Urinary tract infection: Status: Acute Qualifiers: Urinary tract infection type: acute cystitis Hematuria presence: without hematuria Qualified Code(s): N30.00 - Acute cystitis without hematuria (3) Altered mental status: Status: Acute Qualifiers: Altered mental status type: transient alteration of awareness (4) Generalized weakness: Status: Acute (5) Dementia: Status: Chronic Qualifiers: Dementia type: Alzheimer's Alzheimer's disease onset: unspecified onset Dementia severity: severe Dementia behavioral or psychological symptom: with agitation Qualified Code(s): G30.9 - Alzheimer's disease, unspecified; F02.C11 - Dementia in other diseases classified elsewhere, severe, with agitation (6) GERD (gastroesophageal reflux disease): Status: Chronic Qualifiers: Esophagitis presence: esophagitis presence not specified Qualified Code(s): K21.9 - Gastro-esophageal reflux disease without esophagitis (7) HTN (hypertension): Status: Chronic Qualifiers: Hypertension type: primary hypertension Qualified Code(s): I10 - Essential (primary) hypertension
[2023-06-18] MEDS: NS 1,000 ML IV 1,000 ML IV SCH ×4 (00:10→17:30)
[2023-06-18 05:41] LABS: BASOPHILS # (AUTO) 0.1 X10^3/uL (0.0-0.1); EOSINOPHILS % (AUTO) 0.2 % (0.9-2.9); HEMATOCRIT 29.6 % (36.0-47.0); HEMOGLOBIN 10.1 g/dL (12.0-16.0); LYMPHOCYTES # (AUTO) 2.3 X10^3/uL (1.3-2.9); LYMPHOCYTES % (AUTO) 43.4 % (21.0-51.0); MEAN CORPUSCULAR HEMOGLOBIN 30.1 pg (27.0-34.0); MEAN CORPUSCULAR HGB CONC 34.3 g/dL (33.0-35.0); MEAN CORPUSCULAR VOLUME 87.9 fL (80.0-100.0); MEAN PLATELET VOLUME 9.2 fL (7.4-11.0); MONOCYTES # (AUTO) 0.4 x10^3/uL (0.3-0.8); MONOCYTES % (AUTO) 6.9 % (0.0-13.0); NEUTROPHILS # (AUTO) 2.5 x10^3/uL (2.2-4.8); NEUTROPHILS % (AUTO) 48.5 % (42.0-75.0); PLATELET COUNT 200 X10^3/uL (150.0-450.0); RED BLOOD COUNT 3.37 X10^6/uL (3.5-5.4); RED CELL DISTRIBUTION WIDTH 15.8 % (11.6-16.5); WHITE BLOOD COUNT 5.2 X10^3/uL (3.6-10.0)
[2023-06-18 06:00] LABS: ALANINE AMINOTRANSFERASE 22 Units/L (12-78); ALBUMIN 2.6 g/dL (3.4-5.0); ALKALINE PHOSPHATASE 82 Units/L (46-116); ASPARTATE AMINO TRANSFERASE 34 Units/L (15-37); BLOOD UREA NITROGEN 15 mg/dL (7-18); CALCIUM 9.8 mg/dL (8.5-10.1); CARBON DIOXIDE 18.5 mmol/L (21-32); CHLORIDE 113 mmol/L (98-107); COR CA(FOR HYPOALB) 10.9 mg/dL (8.5-10.1); CREATININE 1.65 mg/dL (0.55-1.02); GLUCOSE 72 mg/dL (65-99); POTASSIUM 4.9 mmol/L (3.5-5.1); SODIUM 140 mmol/L (136-145); TOTAL PROTEIN 5.5 g/dL (6.4-8.2); eGFR NON BLACK RACES 32 (>60)
[2023-06-18] MEDS: EXELON PATCH TD SCH (09:46)
[2023-06-18] MEDS: ROCEPHIN VIAL 1 GRAM 1 G in NS 100 ML IV 100 ML IV SCH (09:46)
[2023-06-18] MEDS: LOVENOX INJ 30 MG SYR SC SCH (09:46)
[2023-06-18] MEDS: MEGACE PO SCH ×2 (09:46→20:42)
[2023-06-18] MEDS: PROTONIX INJ 40 MG VIAL IVP SCH ×2 (09:46→20:42)
[2023-06-18] MEDS: ZyPREXA TAB 5 MG PO SCH ×2 (09:48→18:11)
[2023-06-18] MEDS: TobraDEX OPHTH OPHTH 1 DOSE LEFTEYE SCH ×2 (10:43→20:42)
--- NOTE | 2023-06-18 17:09 | PCM.PROG ---
Progress Note Progress Note for Day of Date of Exam: 06/18/23 Subjective Subjective: IS CURRENTLY INPATIENT STATUS. SHE HAS A PMH OF HER PMH INCLUDES: ALZHEIMERS, DEMENTIA, GERD, HYPOTHYROIDISM, AND HYSTERECTOMY. SHE WAS ADMITTED TO THE HOSPITAL FOR TREATMENT OF ACUTE DEHYDRATION, UTI, AMS, AND GENERALIZED WEAKNESS. THIS MORNING SHE IS RESTING COMFORTABLE IN BED. LAST NIGHT SHE REQUIRED HER ZYPREXA TO GO BACK UP TO 5MG DUE TO AGITATION. SHE WILL BE GOING TO [facility] FOLLOWING DISCHARGE. SHE IS CURRENTLY RECEIVING NORMAL SALINE AT 120 ML/H, ROCEPHIN 1G IV DAILY, PROTONIX 40MG IV BID, LOVENOX 30MG SC DAILY, RIVASTIGMINE PATCH, AND A CATAPRES 0.3MG/HR TD PATCH. SHE IS RECEIVING TOBRADEX OINTMENT TO THE LEFT EYE BID. OTHERWISE, WE WILL CONTINUE WIT H CURRENT PLAN OF CARE TODAY. WE WILL FOLLOW UP WITH AM LABS AND CONTINUE TO MONITOR. Past Medical Family Social History Past Med/Fam/Surg Hx: No changes since H&P Allergies: Allergies No Known Allergies Allergy (Verified 04/17/19 14:28) Review of Systems ROS: No change since H&P Vital Signs and I&O's Vital Signs: Vital Signs Temperature 98.1 F Pulse Rate 58 Pulse Rate 60 Pulse Rate 82 Pulse Rate 79 Pulse Rate 64 Pulse Rate 64 Respiratory Rate 16 Respiratory Rate 19 Respiratory Rate 21 Respiratory Rate 24 Respiratory Rate 21 Respiratory Rate 20 Blood Pressure 151/67 O2 Sat by Pulse Oximetry 100 O2 Sat by Pulse Oximetry 100 O2 Sat by Pulse Oximetry 100 O2 Sat by Pulse Oximetry 100 O2 Sat by Pulse Oximetry 100 O2 Sat by Pulse Oximetry 100 Intake and Output: Intake & Output 06/15/23 06/16/23 06/17/23 06/18/23 23:59 23:59 23:59 23:59 Intake Total 952 / 992 1328 / 1328 2004 1590 / 1590 Balance 952 / 952 1328 / 1328 2004 1590 / 1590 Physical Exam Oriented: Not Oriented Eyes: Normal Ear: Normal Nose: Normal Throat: Normal Respiratory: Generalized and Diminished Cardiovascular: Normal : Normal Auscultation: Bowel Sounds: Normal Tenderness: Normal Skin: Normal Musculoskeletal: Right, Left, Hip, Back:Lumbar and Tender Psychiatric: Other Mood Description: Anxious Affect: Anxious Speech Pattern: Clear and Inappropriate Laboratory and Diagnostics 06/18/23 04:35 06/18/23 04:35 Labs: 06/12/23 12:47 Urine,Catheterized Urine Culture - Final Citrobacter Freundii Laboratory WBC 5.2 X10^3/uL (3.6-10.0) 06/18/23 04:35 RBC 3.37 X10^6/uL (3.5-5.4) L 06/18/23 04:35 Hgb 10.1 g/dL (12.0-16.0) L 06/18/23 04:35 Hct 29.6 % (36.0-47.0) L 06/18/23 04:35 MCV 87.9 fL (80.0-100.0) 06/18/23 04:35 MCH 30.1 pg (27.0-34.0) 06/18/23 04:35 MCHC 34.3 g/dL (33.0-35.0) 06/18/23 04:35 RDW 15.8 % (11.6-16.5) 06/18/23 04:35 Plt Count 200 X10^3/uL (150.0-450.0) 06/18/23 04:35 Plt Count Comment Adequate (ADEQUATE) 06/15/23 05:56 MPV 9.2 fL (7.4-11.0) 06/18/23 04:35 Neut % (Auto) 48.5 % (42.0-75.0) 06/18/23 04:35 Lymph % (Auto) 43.4 % (21.0-51.0) 06/18/23 04:35 [place] % (Auto) 6.9 % (0.0-13.0) 06/18/23 04:35 Eos % (Auto) 0.2 % (0.9-2.9) L 06/18/23 04:35 Baso % (Auto) 1.0 % (0.2-1.0) 06/18/23 04:35 Neut # (Auto) 2.5 x10^3/uL (2.2-4.8) 06/18/23 04:35 Lymph # (Auto) 2.3 X10^3/uL (1.3-2.9) 06/18/23 04:35 [place] # (Auto) 0.4 x10^3/uL (0.3-0.8) 06/18/23 04:35 Eos # (Auto) 0.0 x10^3/uL (0.0-0.2) 06/18/23 04:35 Baso # (Auto) 0.1 X10^3/uL (0.0-0.1) 06/18/23 04:35 Absolute Nucleated RBC 0.1 /100WBC 06/18/23 04:35 Plt Clumps, EDTA Few 06/15/23 05:56 Plt Morphology Comment Normal (NORMAL) 06/15/23 05:56 RBC Morphology Normal (NORMAL) 06/15/23 05:56 Sodium 140 mmol/L (136-145) 06/18/23 04:35 Corrected Sodium TNP 06/18/23 04:35 Potassium 4.9 mmol/L (3.5-5.1) 06/18/23 04:35 Chloride 113 mmol/L (98-107) H 06/18/23 04:35 Carbon Dioxide 18.5 mmol/L (21-32) L 06/18/23 04:35 BUN 15 mg/dL (7-18) 06/18/23 04:35 Creatinine 1.65 mg/dL (0.55-1.02) H 06/18/23 04:35 Est GFR (MDRD) Af Amer 38 (>60) L 06/18/23 04:35 Est GFR (MDRD) Non-Af 32 (>60) L 06/18/23 04:35 Glucose 72 mg/dL (65-99) 06/18/23 04:35 Calcium 9.8 mg/dL (8.5-10.1) 06/18/23 04:35 Corrected Calcium 10.9 mg/dL (8.5-10.1) H 06/18/23 04:35 Magnesium 2.0 mg/dL (2.0-2.9) 06/16/23 04:30 Total Bilirubin 0.20 mg/dL (0.2-1.0) 06/18/23 04:35 AST 34 Units/L (15-37) 06/18/23 04:35 ALT 22 Units/L (12-78) 06/18/23 04:35 Alkaline Phosphatase 82 Units/L (46-116) 06/18/23 04:35 Creatine Kinase 86 Units/L (26-192) 06/12/23 12:40 Troponin I High Sens 47.0 ng/L (4.0-60.0) 06/12/23 12:40 Total Protein 5.5 g/dL (6.4-8.2) L 06/18/23 04:35 Albumin 2.6 g/dL (3.4-5.0) L 06/18/23 04:35 Globulin 2.9 g/dL (2.5-4.5) 06/18/23 04:35 Albumin/Globulin Ratio 0.9 Ratio (1.1-2.1) L 06/18/23 04:35 Specimen Type Catherized urine 06/12/23 12:47 Urine Color Yellow (YELLOW) 06/12/23 12:47 Urine Appearance Cloudy (CLEAR) 06/12/23 12:47 Urine pH 6.0 (5.0 - 8.0) 06/12/23 12:47 Ur Specific [place] 1.015 (1.000-1.030) 06/12/23 12:47 Urine Protein 2+ (NEGATIVE) 06/12/23 12:47 Urine Glucose (UA) Negative (NEGATIVE) 06/12/23 12:47 Urine Ketones Negative (NEGATIVE) 06/12/23 12:47 Urine Blood 1+ (NEGATIVE) 06/12/23 12:47 Urine Nitrite Positive (NEGATIVE) 06/12/23 12:47 Urine Bilirubin Negative (NEGATIVE) 06/12/23 12:47 Urine Urobilinogen Normal (NORMAL) 06/12/23 12:47 Ur Leukocyte Esterase 2+ (NEGATIVE) 06/12/23 12:47 Urine RBC 3-5 /HPF (0-3) A 06/12/23 12:47 Urine WBC 10-20 /HPF (0-5) A 06/12/23 12:47 Ur Squamous Epith Cells Rare /HPF (NEGATIVE) 06/12/23 12:47 Urine Bacteria 1+ /HPF (NEGATIVE) 06/12/23 12:47 Ur Culture Indicated? Yes/culture set up 06/12/23 12:47 Plan (1) Acute dehydration: Status: Acute Plan: NORMAL SALINE AT 125 ML/HR, ROCEPHIN 1G IV DAILY, PROTONIX 40MG IV BID, LOVENOX 30MG SC DAILY, CLONIDINE PATCH WEEKLY, RIVASTIGMINE PATCH DAILY. HER HOME MEDICATIONS OF ZYPREXA AND MEGACE WERE RESUMED. (2) Urinary tract infection: Status: Acute Qualifiers: Urinary tract infection type: acute cystitis Hematuria presence: without hematuria Qualified Code(s): N30.00 - Acute cystitis without hematuria (3) Altered mental status: Status: Acute Qualifiers: Altered mental status type: transient alteration of awareness (4) Generalized weakness: Status: Acute (5) Dementia: Status: Chronic Qualifiers: Dementia type: Alzheimer's Alzheimer's disease onset: unspecified onset Dementia severity: severe Dementia behavioral or psychological symptom: with agitation Qualified Code(s): G30.9 - Alzheimer's disease, unspecified; F02.C11 - Dementia in other diseases classified elsewhere, severe, with agitation (6) GERD (gastroesophageal reflux disease): Status: Chronic Qualifiers: Esophagitis presence: esophagitis presence not specified Qualified Code(s): K21.9 - Gastro-esophageal reflux disease without esophagitis (7) HTN (hypertension): Status: Chronic Qualifiers: Hypertension type: primary hypertension Qualified Code(s): I10 - Essential (primary) hypertension
[2023-06-18] MEDS: VALIUM INJ IVP PRN (18:11)
[2023-06-18] MEDS: CHECK PATCH XX SCH (20:42)
[2023-06-19] MEDS: NS 1,000 ML IV 1,000 ML IV SCH ×3 (00:22→08:07)
[2023-06-19] MEDS: VALIUM INJ IVP PRN (02:47)
[2023-06-19 05:17] LABS: BASOPHILS % (AUTO) 0.2 % (0.2-1.0); EOSINOPHILS % (AUTO) 0.1 % (0.9-2.9); HEMATOCRIT 30.9 % (36.0-47.0); HEMOGLOBIN 10.8 g/dL (12.0-16.0); LYMPHOCYTES % (AUTO) 36.7 % (21.0-51.0); MEAN CORPUSCULAR HEMOGLOBIN 30.8 pg (27.0-34.0); MEAN CORPUSCULAR HGB CONC 34.9 g/dL (33.0-35.0); MEAN CORPUSCULAR VOLUME 88.3 fL (80.0-100.0); MEAN PLATELET VOLUME 8.9 fL (7.4-11.0); MONOCYTES # (AUTO) 0.3 x10^3/uL (0.3-0.8); MONOCYTES % (AUTO) 6.2 % (0.0-13.0); NEUTROPHILS # (AUTO) 3.1 x10^3/uL (2.2-4.8); NEUTROPHILS % (AUTO) 56.8 % (42.0-75.0); PLATELET COUNT 209 X10^3/uL (150.0-450.0); RED BLOOD COUNT 3.49 X10^6/uL (3.5-5.4); RED CELL DISTRIBUTION WIDTH 15.8 % (11.6-16.5); WHITE BLOOD COUNT 5.5 X10^3/uL (3.6-10.0)
[2023-06-19 05:32] LABS: ALANINE AMINOTRANSFERASE 29 Units/L (12-78); ALBUMIN 2.6 g/dL (3.4-5.0); ALKALINE PHOSPHATASE 81 Units/L (46-116); ASPARTATE AMINO TRANSFERASE 34 Units/L (15-37); BLOOD UREA NITROGEN 15 mg/dL (7-18); CALCIUM 9.9 mg/dL (8.5-10.1); CARBON DIOXIDE 20.8 mmol/L (21-32); CHLORIDE 112 mmol/L (98-107); CREATININE 1.59 mg/dL (0.55-1.02); GLUCOSE 80 mg/dL (65-99); POTASSIUM 4.8 mmol/L (3.5-5.1); SODIUM 140 mmol/L (136-145); TOTAL PROTEIN 5.8 g/dL (6.4-8.2); eGFR NON BLACK RACES 33 (>60)
[2023-06-19 08:05] VITALS: O2SAT 98
[2023-06-19] MEDS: LOVENOX INJ 30 MG SYR SC SCH (08:45)
[2023-06-19] MEDS: EXELON PATCH TD SCH (08:45)
[2023-06-19] MEDS: MEGACE PO SCH ×2 (08:46→09:26)
[2023-06-19] MEDS: TobraDEX OPHTH OPHTH 1 DOSE LEFTEYE SCH (08:46)
[2023-06-19] MEDS: ZyPREXA TAB 5 MG PO SCH ×2 (08:46→09:26)
[2023-06-19] MEDS: PROTONIX INJ 40 MG VIAL IVP SCH (08:46)
[2023-06-19] MEDS: ROCEPHIN VIAL 1 GRAM 1 G in NS 100 ML IV 100 ML IV SCH (08:46)
[2023-06-19] MEDS ORDERED: COZAAR PO SCH (11:00)
[2023-06-19] MEDS: CATAPRES-TTS-3 TD SCH (11:15)
[2023-06-19 12:17] VITALS: BP 161/60; PULSE 68; RESP 26
[2023-06-19 12:49] VITALS: TEMP 98.3
[2023-06-19] MEDS ORDERED: ZyPREXA TAB 5 MG PO SCH (18:00)
== END 2023-06-19 14:02 | DRG 690 ==
LOC: ER 12:22 → ICU 12:22
PROVIDERS: ADMIT Internal Medicine; ATTEND Internal Medicine

== ENCOUNTER 2023-07-17 09:40 | Inpatient (IN) ==
[2023-07-17 10:03] LABS: BILIRUBIN,URINE NEGATIVE (NEGATIVE); BLOOD/HEMOGLOBIN,URINE 2+ (NEGATIVE); GLUCOSE, URINE NEGATIVE (NEGATIVE); KETONES,URINE NEGATIVE (NEGATIVE); LEUKOCYTE ESTERASE ,URINE 3+ (NEGATIVE); NITRITES,URINE NEGATIVE (NEGATIVE); PROTEIN,URINE 2+ (NEGATIVE); UROBILINOGEN,URINE NORMAL (NORMAL)
--- NOTE | 2023-07-17 10:06 | EKG ---
Test Reason : unresponsive Blood Pressure : */* mmHG Vent. Rate : 98 BPM Atrial Rate : 98 BPM P-R Int : 198 ms QRS Dur : 88 ms QT Int : 310 ms P-R-T Axes : 49 -18 97 degrees QTc Int : 395 ms Normal sinus rhythm Moderate voltage criteria for LVH, may be normal variant ( R in aVL , [place] product ) Anterior infarct (cited on or before 12-JUN-2023) Abnormal ECG When compared with ECG of 12-JUN-2023 13:56, Questionable change in initial forces of Septal leads Confirmed by Prashant Sotelo ([id number]) on 07/18/2023 7:54:18 AM Referred By: Confirmed By: Prashant Sotelo
[2023-07-17] MEDS ORDERED: NS 1,000 ML IV 1,000 ML ONE (10:11)
[2023-07-17 10:16] LABS: APPEARANCE,URINE CLOUDY (CLEAR); COLOR,URINE STRAW (YELLOW)
[2023-07-17 10:17] LABS: BACTERIA,URINE 1+ /HPF (NEGATIVE); SQUAMOUS EPITHELIAL CELL,UR FEW /HPF (NEGATIVE)
--- NOTE | 2023-07-17 10:21 | DR.AMS ---
HPI Time Seen Time Seen by Provider: 07/17/23 10:21 PCP Primary Care Physician: Dr. Yo HPI Comment HPI Comment: Patient is a 83-year-old female in the ER from the [facility] complaining about increasing confusion and being less responsive for the past few days. Patient is not eating or drinking and is not able to take her medication for the past few days as well. No vomiting or diarrhea. Patient is running low-grade fever. Patient have history of hypertension hypothyroidism GERD and dementia. Complaint Cheif Complaint Doctors Comments: Increasing confusion lack of appetite and not being able to take medications or fluid times several days. Chief Complaint:: [facility] staff reports that pt has been less responsive for the past several days. She hasn't been eating, drinking, or taking her medications for several days. COVID-19 Coronavirus risk:travel/contact w/high risk person: No Has patient experienced Coronavirus symptoms: No Reviewed Nurses Notes Reviewed: Yes Source History Provided: [facility] Mode of Arrival Mode of Arrival: Stretcher Timing Onset of Chief Complaint: 07/17/23 PMH PMH Past Medical History: Yes Past Medical History: Alzheimers, Dementia, GERD, Hypertension and Hypothyroidism Past Surgical History: Yes Surgical History: Hysterectomy and Ortho Surgery Family History History of Family Medical Conditions: Yes Family Medical History: Diabetes Mellitus, Cancer and Hypertension Social History Alcohol Use: None Do you use any recreational Drugs:: No Lives With: Other Lives Where: [facility] Travel Risk Coronavirus risk:travel/contact w/high risk person: No Has patient experienced Coronavirus symptoms: No Infectious screening In the last 2 months have you had wt loss of >10#?: NO Have you had fever, night sweats or hemotysis?: No Have you traveled outside the country in the last 6 months?: No Isolation: Standard ROS Review of Systems Constitutional: Weakness, Fatigue and Other (UNRESPONSIVE. ); negative Fever ENTM: negative Nose Discharge Respiratoy: Short of Breath; negative Wheezing Cardiovascular: negative Edema or Palpitations Gastrointestinal/Abdominal: negative Diarrhea or Vomiting Genitourinary: negative Hematuria Neurological: Weakness and Other (UNRESPONSIVE.) Musculoskeletal: Other (Unresponsive.) Integumentary: Dryness Hematologic/Lymphatic: Easy Bruising Endocrine: Decreased Appetite Psychiatric: Other (Unresponsive.) PE Vitals Vital Signs: Temp Pulse Resp BP Pulse Ox 07/17/23 12:45 87 31 H 98 07/17/23 12:30 89 37 H 96 07/17/23 12:30 169/73 07/17/23 12:30 169/73 07/17/23 12:30 169/73 07/17/23 12:30 89 37 H 96 07/17/23 12:15 88 45 H 97 07/17/23 12:00 150/68 07/17/23 12:00 89 24 97 07/17/23 11:45 86 30 H 97 07/17/23 11:32 90 30 H 94 L 07/17/23 11:30 155/64 07/17/23 11:30 155/64 07/17/23 11:15 88 39 H 07/17/23 11:00 93 H 35 H 07/17/23 11:00 142/63 07/17/23 10:45 93 H 33 H 07/17/23 10:32 94 H 39 H 98 07/17/23 10:30 141/63 07/17/23 10:30 141/63 07/17/23 10:30 141/63 07/17/23 10:30 141/63 07/17/23 10:29 92 H 28 H 98 07/17/23 10:15 96 H 37 H 99 07/17/23 10:00 96 H 22 97 07/17/23 10:00 142/64 07/17/23 09:50 95 H 32 H 98 07/17/23 09:46 99.0 F 98 H 21 132/74 98 General Limitations: Altered Mental Status Head Head Exam: Atraumatic ROR Labs Reviewed 07/17/23 09:50 07/17/23 09:50 Laboratory: WBC 9.2 X10^3/uL (3.6-10.0) 07/17/23 09:50 RBC 4.02 X10^6/uL (3.5-5.4) 07/17/23 09:50 Hgb 12.2 g/dL (12.0-16.0) 07/17/23 09:50 Hct 36.4 % (36.0-47.0) 07/17/23 09:50 MCV 90.7 fL (80.0-100.0) 07/17/23 09:50 MCH 30.4 pg (27.0-34.0) 07/17/23 09:50 MCHC 33.5 g/dL (33.0-35.0) 07/17/23 09:50 RDW 15.7 % (11.6-16.5) 07/17/23 09:50 Plt Count 264 X10^3/uL (150.0-450.0) 07/17/23 09:50 MPV 8.7 fL (7.4-11.0) 07/17/23 09:50 Neut % (Auto) 67.1 % (42.0-75.0) 07/17/23 09:50 Lymph % (Auto) 25.8 % (21.0-51.0) 07/17/23 09:50 [place] % (Auto) 6.8 % (0.0-13.0) 07/17/23 09:50 Eos % (Auto) 0.0 % (0.9-2.9) L 07/17/23 09:50 Baso % (Auto) 0.3 % (0.2-1.0) 07/17/23 09:50 Neut # (Auto) 6.2 x10^3/uL (2.2-4.8) H 07/17/23 09:50 Lymph # (Auto) 2.4 X10^3/uL (1.3-2.9) 07/17/23 09:50 [place] # (Auto) 0.6 x10^3/uL (0.3-0.8) 07/17/23 09:50 Eos # (Auto) 0.0 x10^3/uL (0.0-0.2) 07/17/23 09:50 Baso # (Auto) 0.0 X10^3/uL (0.0-0.1) 07/17/23 09:50 Absolute Nucleated RBC 0.4 /100WBC 07/17/23 09:50 PT 14.0 SECONDS (11.8-14.3) 07/17/23 09:50 INR Target Range - 07/17/23 09:50 INR 1.10 (0.8-1.3) 07/17/23 09:50 Sodium 146 mmol/L (136-145) H 07/17/23 09:50 Corrected Sodium TNP 07/17/23 09:50 Potassium 5.3 mmol/L (3.5-5.1) H 07/17/23 09:50 Chloride 116 mmol/L (98-107) H* 07/17/23 09:50 Carbon Dioxide 16.7 mmol/L (21-32) L 07/17/23 09:50 BUN 82 mg/dL (7-18) H 07/17/23 09:50 Creatinine 2.31 mg/dL (0.55-1.02) H 07/17/23 09:50 Est GFR (MDRD) Af Amer 26 (>60) L 07/17/23 09:50 Est GFR (MDRD) Non-Af 22 (>60) L 07/17/23 09:50 Glucose 96 mg/dL (65-99) 07/17/23 09:50 Lactic Acid 0.4 mmol/L (0.4-2.0) 07/17/23 09:50 Calcium 13.2 mg/dL (8.5-10.1) H* 07/17/23 09:50 Corrected Calcium 13.8 mg/dL (8.5-10.1) H 07/17/23 09:50 Total Bilirubin 0.40 mg/dL (0.2-1.0) 07/17/23 09:50 AST 16 Units/L (15-37) 07/17/23 09:50 ALT 17 Units/L (12-78) 07/17/23 09:50 Alkaline Phosphatase 100 Units/L (46-116) 07/17/23 09:50 Creatine Kinase 21 Units/L (26-192) L 07/17/23 09:50 Troponin I High Sens 38.5 ng/L (4.0-60.0) 07/17/23 09:50 Total Protein 7.5 g/dL (6.4-8.2) 07/17/23 09:50 Albumin 3.3 g/dL (3.4-5.0) L 07/17/23 09:50 Globulin 4.2 g/dL (2.5-4.5) 07/17/23 09:50 Albumin/Globulin Ratio 0.8 Ratio (1.1-2.1) L 07/17/23 09:50 Specimen Type Catherized urine 07/17/23 09:56 Urine Color Straw (YELLOW) 07/17/23 09:56 Urine Appearance Cloudy (CLEAR) 07/17/23 09:56 Urine pH 5.0 (5.0 - 8.0) 07/17/23 09:56 Ur Specific [place] 1.020 (1.000-1.030) 07/17/23 09:56 Urine Protein 2+ (NEGATIVE) 07/17/23 09:56 Urine Glucose (UA) Negative (NEGATIVE) 07/17/23 09:56 Urine Ketones Negative (NEGATIVE) 07/17/23 09:56 Urine Blood 2+ (NEGATIVE) 07/17/23 09:56 Urine Nitrite Negative (NEGATIVE) 07/17/23 09:56 Urine Bilirubin Negative (NEGATIVE) 07/17/23 09:56 Urine Urobilinogen Normal (NORMAL) 07/17/23 09:56 Ur Leukocyte Esterase 3+ (NEGATIVE) 07/17/23 09:56 Urine RBC 5-10 /HPF (0-3) A 07/17/23 09:56 Urine WBC Tntc /HPF (0-5) A 07/17/23 09:56 Ur Squamous Epith Cells Few /HPF (NEGATIVE) 07/17/23 09:56 Urine Bacteria 1+ /HPF (NEGATIVE) 07/17/23 09:56 Urine Mucus Few /HPF (NEGATIVE) 07/17/23 09:56 Ur Culture Indicated? Yes/culture set up 07/17/23 09:56 Opioid Opioid Risk Tool Age (Hugo box if 16-45): No History of Preadolescent Sexual Abuse: No Total: 0 Total Score Risk Category: Low Risk Copyright: Ba ESCOBEDO predicting aberrant behaviors Discharge Plan Discharge Plan Patient Disposition: 09 ADMITTED INPATIENT Condition: Stable
[2023-07-17 10:36] LABS: BASOPHILS % (AUTO) 0.3 % (0.2-1.0); HEMATOCRIT 36.4 % (36.0-47.0); HEMOGLOBIN 12.2 g/dL (12.0-16.0); LYMPHOCYTES # (AUTO) 2.4 X10^3/uL (1.3-2.9); LYMPHOCYTES % (AUTO) 25.8 % (21.0-51.0); MEAN CORPUSCULAR HEMOGLOBIN 30.4 pg (27.0-34.0); MEAN CORPUSCULAR HGB CONC 33.5 g/dL (33.0-35.0); MEAN CORPUSCULAR VOLUME 90.7 fL (80.0-100.0); MEAN PLATELET VOLUME 8.7 fL (7.4-11.0); MONOCYTES # (AUTO) 0.6 x10^3/uL (0.3-0.8); MONOCYTES % (AUTO) 6.8 % (0.0-13.0); NEUTROPHILS # (AUTO) 6.2 x10^3/uL (2.2-4.8); NEUTROPHILS % (AUTO) 67.1 % (42.0-75.0); PLATELET COUNT 264 X10^3/uL (150.0-450.0); RED BLOOD COUNT 4.02 X10^6/uL (3.5-5.4); RED CELL DISTRIBUTION WIDTH 15.7 % (11.6-16.5); WHITE BLOOD COUNT 9.2 X10^3/uL (3.6-10.0)
[2023-07-17 10:47] LABS: ALANINE AMINOTRANSFERASE 17 Units/L (12-78); ALBUMIN 3.3 g/dL (3.4-5.0); ALKALINE PHOSPHATASE 100 Units/L (46-116); ASPARTATE AMINO TRANSFERASE 16 Units/L (15-37); BLOOD UREA NITROGEN 82 mg/dL (7-18); CARBON DIOXIDE 16.7 mmol/L (21-32); COR CA(FOR HYPOALB) 13.8 mg/dL (8.5-10.1); CREATINE KINASE 21 Units/L (26-192); CREATININE 2.31 mg/dL (0.55-1.02); GLUCOSE 96 mg/dL (65-99); POTASSIUM 5.3 mmol/L (3.5-5.1); SODIUM 146 mmol/L (136-145); TOTAL PROTEIN 7.5 g/dL (6.4-8.2); eGFR NON BLACK RACES 22 (>60)
[2023-07-17 10:50] LABS: CHLORIDE 116 mmol/L (98-107)
[2023-07-17 10:51] LABS: CALCIUM 13.2 mg/dL (8.5-10.1)
[2023-07-17] MEDS ORDERED: NS 1,000 ML IV 1,000 ML IV ONE (10:57)
[2023-07-17] MEDS ORDERED: NS 1,000 ML IV 1,000 ML IV SCH (11:00)
[2023-07-17] MEDS ORDERED: ROCEPHIN VIAL 1 GRAM ONE (11:10)
[2023-07-17] MEDS ORDERED: NS 100 ML IV 100 ML ONE (11:11)
[2023-07-17] MEDS: ROCEPHIN VIAL 1 GRAM 1 G in NS 100 ML IV 100 ML IV SCH (11:17)
[2023-07-17] MEDS: NS 1,000 ML IV 1,000 ML IV SCH ×2 (14:04→23:58)
[2023-07-17] MEDS ORDERED: PHARMACY CONSULT LTC MEDICATIONS XX SCH (15:00)
--- NOTE | 2023-07-17 18:13 | RAD ---
EXAM:CHEST, 1 VIEWHISTORY:UNRESPONSIVE, SOB; UnavailableCOMPARISON:06/12/2023FINDINGS: without focal infiltrate or effusion. The bony thorax is unremarkable.IMPRESSION:No acute cardiopulmonary disease.THIS IS AN ELECTRONICALLY VERIFIED FINAL [id number] 6:10 PM - Electronically signed by Hemant Gonzales MD
[2023-07-17] MEDS ORDERED: CATAPRES-TTS-3 TD SCH (19:00)
[2023-07-17] MEDS: ZyPREXA TAB 5 MG PO SCH (20:13)
[2023-07-17] MEDS: MEGACE PO SCH (20:13)
[2023-07-18] MEDS: NS 1,000 ML IV 1,000 ML IV SCH (03:59)
[2023-07-18 05:47] LABS: BASOPHILS % (AUTO) 0.3 % (0.2-1.0); HEMOGLOBIN 11.7 g/dL (12.0-16.0); LYMPHOCYTES % (AUTO) 26.6 % (21.0-51.0); MEAN CORPUSCULAR HEMOGLOBIN 30.7 pg (27.0-34.0); MEAN CORPUSCULAR HGB CONC 34.3 g/dL (33.0-35.0); MEAN CORPUSCULAR VOLUME 89.5 fL (80.0-100.0); MONOCYTES # (AUTO) 0.4 x10^3/uL (0.3-0.8); MONOCYTES % (AUTO) 5.6 % (0.0-13.0); NEUTROPHILS % (AUTO) 67.5 % (42.0-75.0); PLATELET COUNT 246 X10^3/uL (150.0-450.0); RED CELL DISTRIBUTION WIDTH 15.9 % (11.6-16.5); WHITE BLOOD COUNT 7.4 X10^3/uL (3.6-10.0)
[2023-07-18 06:09] LABS: ALANINE AMINOTRANSFERASE 17 Units/L (12-78); ALBUMIN 3.1 g/dL (3.4-5.0); ALKALINE PHOSPHATASE 95 Units/L (46-116); ASPARTATE AMINO TRANSFERASE 17 Units/L (15-37); BLOOD UREA NITROGEN 68 mg/dL (7-18); CALCIUM 12.2 mg/dL (8.5-10.1); COR CA(FOR HYPOALB) 12.9 mg/dL (8.5-10.1); CREATININE 1.92 mg/dL (0.55-1.02); GLUCOSE 93 mg/dL (65-99); MAGNESIUM 1.9 mg/dL (2.0-2.9); POTASSIUM 5.1 mmol/L (3.5-5.1); eGFR NON BLACK RACES 27 (>60)
[2023-07-18 06:11] LABS: CHLORIDE 121 mmol/L (98-107); SODIUM 150 mmol/L (136-145)
[2023-07-18] MEDS: SYNTHROID 100 mcg TAB PO SCH (06:47)
[2023-07-18 08:16] VITALS: BMI 24.7
[2023-07-18] MEDS ORDERED: ROCEPHIN VIAL 1 GRAM 1 G in NS 100 ML IV 100 ML IV SCH (09:00)
[2023-07-18] MEDS ORDERED: COZAAR PO SCH (09:00)
[2023-07-18] MEDS ORDERED: PROTONIX TAB 40 MG PO SCH (09:00)
[2023-07-18] MEDS: EXELON PATCH TD SCH (09:34)
[2023-07-18] MEDS: ROCEPHIN VIAL 1 GRAM 1 G in NS 100 ML IV 100 ML IV SCH (09:34)
[2023-07-18] MEDS: MEGACE PO SCH ×2 (09:47→21:24)
[2023-07-18] MEDS: D5W 1,000 ML IV 1,000 ML IV SCH ×2 (11:00→21:28)
[2023-07-18] MEDS: LOPRESSOR INJ 5 MG AMP IVP SCH ×2 (11:01→21:19)
[2023-07-18] MEDS: LOVENOX INJ 30 MG SYR SC SCH (11:02)
--- NOTE | 2023-07-18 12:34 | DR.H&P ---
H&P - History & Physical for Day of: H&P Date: 07/17/23 - Chief Complaint Chief Complaint: DECREASED RESPONSIVENESS - History of Present Illness History of Present Illness: IS A 83 YEAR OLD PATIENT OF OURS. SHE IS A RESIDENT OF [facility] [place]. SHE HAS A PMH OF ALZHEIMERS, DEMENTIA, GERD, HTN, HYPOTHYROIDISM, AND HYSTERECTOMY. WAS BROUGHT TO THE ER BY THE [facility] STAFF YESTERDAY. STAFF REPORTED THAT PATIENT HAS HAD DECREASED RESPONSIVENESS OVER THE PAST 2-3 DAYS. THEY REPORT THAT PATIENT HAS BEEN UNABLE TO EAT, DRINK, OR TAKE MEDICATIONS DUE TO DECREASED RESPONSIVENESS. THEY REPORT THAT PATIENT HAS BEEN RUNNING A LOW-GRADE FEVER, BUT HAS NOT HAD ANY RESPIRATORY OR GI SYMPTOMS. ON ARRIVAL TO THE HOSPITAL, PATIENT WAS NOTED TO BE LYING ON THE STRETCHER WITH EYES CLOSED. PATIENT OPENED EYES TO VERBAL STIMULI, BUT DID NOT RESPOND VERBALLY OR FOLLOW COMMANDS. HER VITALS WERE: 99.0-98-21-98%-132/74. LABS WERE OBTAINED. WBC 9.2, RBC 4.02, HGB 12.2, HCT 36.4, PLT COUNT 264, PT 14.0, INR 1.10, SODIUM 146, POTASSIUM 5.3, CHLORIDE 116, CARBON DIOXIDE 16.7, BUN 82, CREATININE 2.31, GLUCOSE 96, CALCIUM 13.2, TOTAL BILI 0.40, AST 16, ALT 17, ALK PHOS 100, CREATINE KINASE 21, TROPONIN 38.5, TOTAL PROTEIN 7.5, ALBUMIN 3.3, LACTIC ACID 0.4. A URINALYSIS WAS OBTAINED AND REVEALED: WBC TNTC, RBC 5- 10, LEUKOCYTES 3+, BACTERIA 1+, BLOOD 2+. BLOOD AND URINE CULTURES WERE SET UP. A CHEST XRAY WAS OBTAINED AND REVEALED: NO ACUTE CARDIOPULMONARY DISEASE. EKG WAS OBTAINED AND REVEALED: NORMAL SINUS RHYTHM WITH HR 98 BPM. IN THE ER, SHE WAS GIVEN A NORMAL SALINE BOLUS. SHE WAS ADMITTED TO THE HOSPITAL INPATIENT STATUS FOR FURTHER EVALUATION AND TREATMENT OF ACUTE RENAL FAILURE, DEHYDRATION, UTI, AND ALTERED MENTAL STATUS. SHE WAS STARTED ON D5W @ 100ML/HR, LOVENOX 30MG SC DAILY, ROCEPHIN 1G IV DAILY, LOPRESSOR 5MG IV Q12H, PROTONIX 40MG IV DAILY. HER HOME MEDICATIONS OF CLONIDINE PATCH, MEGACE, ZYPREXA, AND RIVASTIGMINE WERE RESUMED. OTHERWISE, WE PLAN TO FOLLOW UP WITH AM LABS AND CONTINUE TO MONITOR. TIME SPENT ON CLINICAL ASSESSMENT, REVIEWING LABS AND IMAGING, DECISION MAKING, AND DOCUMENTATION GREATER THAN 75 MINUTES. - Past Medical History Past Medical History: Hypertension, Alzheimers, Dementia, Hypothyroidism, GERD - Past Surgical History Surgical History: Hysterectomy, Ortho Surgery - Family History Family Medical History: Diabetes Mellitus, Cancer, Hypertension - Social History Alcohol Use: None Drug Use: None - Review of Systems Constitutional: Fever, Weakness Eyes: No Symptoms Reported ENT: No Symptoms Reported Respiratory: No Symptoms Reported Cardiovascular: No Symptoms Reported Gastrointestinal: No Symptoms Reported Genitourinary: No Symptoms Reported Musculoskeletal: No Symptoms Reported Skin: No Symptoms Reported Neurological: See HPI, Weakness - Physical Exam Vital Signs: Vital Signs Temperature 98.1 F Temperature 97.9 F Pulse Rate 104 Pulse Rate 104 Pulse Rate 98 Pulse Rate 92 Respiratory Rate 17 Respiratory Rate 15 Respiratory Rate 19 Respiratory Rate 15 Blood Pressure 183/98 Blood Pressure 191/79 Blood Pressure 192/81 O2 Sat by Pulse Oximetry 100 O2 Sat by Pulse Oximetry 100 O2 Sat by Pulse Oximetry 100 O2 Sat by Pulse Oximetry 100 Oriented: Unable to test Eyes: Normal Ear: Normal Nose: Normal Throat: Normal Respiratory: Diminished Throughout Cardiovascular: Normal : Normal Auscultation: Bowel Sounds: Normal Palpation: Normal Tenderness: Normal Skin: Decreased Turgur Musculoskeletal: Normal Psychiatric: Normal Mood Description: Calm Affect: Normal Speech Pattern: Unclear, Inappropriate - Assessment/Plan (1) Acute renal failure Qualifiers: Acute renal failure type: unspecified Qualified Code(s): N17.9 - Acute kidney failure, unspecified Status: Acute Plan: ADMIT, D5W @ 100ML/HR, LOVENOX 30MG SC DAILY, ROCEPHIN 1G IV DAILY, LOPRESSOR 5MG IV Q12H, PROTONIX 40MG IV DAILY. RESUME HOME MEDS (2) Dehydration, mild Status: Acute (3) Urinary tract infection Qualifiers: Urinary tract infection type: acute cystitis Hematuria presence: without hematuria Qualified Code(s): N30.00 - Acute cystitis without hematuria Status: Acute (4) Altered mental status Qualifiers: Altered mental status type: transient alteration of awareness Qualified Code(s): R40.4 - Transient alteration of awareness Status: Acute (5) HTN (hypertension) Qualifiers: Hypertension type: primary hypertension Qualified Code(s): I10 - Essential (primary) hypertension Status: Chronic Plan: METOPROLOL AND HYDRALAZINE IV (6) GERD (gastroesophageal reflux disease) Qualifiers: Esophagitis presence: esophagitis presence not specified Qualified Code(s): K21.9 - Gastro-esophageal reflux disease without esophagitis Status: Chronic Plan: PROTONIX 40MG IV DAILY (7) Dementia Qualifiers: Dementia type: Alzheimer's Alzheimer's disease onset: unspecified onset Dementia severity: severe Dementia behavioral or psychological symptom: with agitation Qualified Code(s): G30.9 - Alzheimer's disease, unspecified; F02.C11 - Dementia in other diseases classified elsewhere, severe, with agitation Status: Chronic Plan: RESUME EXELON PATCH - Allergies Allergies/Adverse Reactions: Allergies Allergy/AdvReac Type Severity Reaction Status Date / Time No Known Allergies Allergy Verified 04/17/19 14:28 - Medications Home Medications: Home Medications Medication Instructions Recorded Confirmed losartan 50 mg tablet 50 mg PO DAILY 06/12/23 07/17/23 levothyroxine 200 mcg tablet 200 mcg PO QDAY 06/17/23 07/17/23 olanzapine 5 mg tablet 5 mg PO HS 07/17/23 07/17/23 Previous Rx's Medication Instructions Recorded megestrol 40 mg tablet 40 mg PO BID #60 tabs 03/09/18 clonidine 0.3 mg/24 hr weekly 0.3 mg TD Q7D 06/19/23 transdermal patch pantoprazole 40 mg tablet,delayed 40 mg PO DAILY #30 tabs 06/19/23 release (Protonix) rivastigmine 4.6 mg/24 hour 4.6 mg TD DAILY 06/19/23 transdermal patch
[2023-07-18] MEDS: APRESOLINE INJ 20 MG VIAL IVP PRN (12:55)
[2023-07-18] MEDS: PROTONIX INJ 40 MG VIAL IVP SCH (13:04)
[2023-07-18] MEDS: ZyPREXA TAB 5 MG PO SCH (21:25)
[2023-07-19] MEDS: APRESOLINE INJ 20 MG VIAL IVP PRN (04:25)
[2023-07-19 05:32] LABS: BASOPHILS % (AUTO) 0.4 % (0.2-1.0); EOSINOPHILS % (AUTO) 0.1 % (0.9-2.9); HEMATOCRIT 37.7 % (36.0-47.0); HEMOGLOBIN 13.1 g/dL (12.0-16.0); LYMPHOCYTES # (AUTO) 1.8 X10^3/uL (1.3-2.9); LYMPHOCYTES % (AUTO) 20.6 % (21.0-51.0); MEAN CORPUSCULAR HEMOGLOBIN 31.1 pg (27.0-34.0); MEAN CORPUSCULAR HGB CONC 34.8 g/dL (33.0-35.0); MEAN CORPUSCULAR VOLUME 89.4 fL (80.0-100.0); MONOCYTES # (AUTO) 0.5 x10^3/uL (0.3-0.8); MONOCYTES % (AUTO) 5.5 % (0.0-13.0); NEUTROPHILS # (AUTO) 6.2 x10^3/uL (2.2-4.8); NEUTROPHILS % (AUTO) 73.4 % (42.0-75.0); PLATELET COUNT 264 X10^3/uL (150.0-450.0); RED BLOOD COUNT 4.22 X10^6/uL (3.5-5.4); RED CELL DISTRIBUTION WIDTH 15.8 % (11.6-16.5); WHITE BLOOD COUNT 8.5 X10^3/uL (3.6-10.0)
[2023-07-19 05:39] LABS: ALBUMIN 3.1 g/dL (3.4-5.0); CARBON DIOXIDE 16.2 mmol/L (21-32); COR CA(FOR HYPOALB) 13.5 mg/dL (8.5-10.1); CREATININE 1.77 mg/dL (0.55-1.02); MAGNESIUM 1.6 mg/dL (2.0-2.9); POTASSIUM 4.6 mmol/L (3.5-5.1); TOTAL PROTEIN 7.1 g/dL (6.4-8.2)
[2023-07-19 05:43] LABS: CALCIUM 12.8 mg/dL (8.5-10.1)
[2023-07-19] MEDS ORDERED: CONSULT PHARMACY - POTASSIUM & MAGNESIUM XX SCH (07:00)
[2023-07-19] MEDS: ROCEPHIN VIAL 1 GRAM 1 G in NS 100 ML IV 100 ML IV SCH (09:28)
[2023-07-19] MEDS: D5W IV SCH ×2 (09:29)
[2023-07-19] MEDS: MAGNESIUM SULFATE IV SCH ×2 (09:29)
[2023-07-19] MEDS: LOVENOX INJ 30 MG SYR SC SCH (10:48)
[2023-07-19] MEDS: PROTONIX INJ 40 MG VIAL IVP SCH (10:49)
[2023-07-19] MEDS: EXELON PATCH TD SCH (10:53)
[2023-07-19] MEDS: SYNTHROID 100 mcg TAB PO SCH (11:51)
[2023-07-19] MEDS: LOPRESSOR INJ 5 MG AMP IVP SCH ×2 (11:53→20:30)
[2023-07-19] MEDS: MEGACE PO SCH (11:54)
--- NOTE | 2023-07-19 12:54 | PCM.PROG ---
Progress Note - Progress Note for Day of Date of Exam: 07/19/23 - Subjective Subjective: IS CURRENTLY INPATIENT STATUS FOR TREATMENT OF ACUTE RENAL FAILURE, DEHYDRATION, UTI, AND AMS. SHE HAS A PMH OF ADVANCED ALZHEIMERS, DEMENTIA, GERD, HTN, HYPOTHYROIDISM, AND HYSTERECTOMY. TODAY, SHE IS LYING IN BED WITH EYES CLOSED ON MORNING ROUNDS. SHE IS DIFFICULT TO AROUSE THIS MORNING. HER DAUGHTER IS AT BEDSIDE AND REPORTS THAT SHE HAS BEEN RESTING WELL THIS MORNING, BUT WAS RESTLESS AND APPEARED TO BE IN PAIN THROUGHOUT THE NIGHT. SHE HAS NOT BEEN ALERT ENOUGH TO EAT, DRINK, OR TAKE ANY OF HER MEDICATIONS. ON EXAMINATION, SHE IS SLIGHTLY TACHYCARDIC WITH HR 100-110 BPM. BILATERAL LUNGS ARE NOTED WITH DIMINISHED LUNG SOUNDS THROUGHOUT. ABDOMEN IS ROUND, SOFT, AND NORMAL BOWEL SOUNDS ARE NOTED IN ALL QUADRANTS. NO UPPER OR LOWER EXTREMITY EDEMA NOTED. A ESQUIVEL CATHETER IS NOTED TO BEDSIDE DRAINAGE. HER VITALS THIS MORNING WERE: 97.9-535-11-100%-108/56. LABS WERE OBTAINED. WBC 8.5, RBC 4.22, HGB 13.1, HCT 37.7, PLT COUNT 264, SODIUM 144, POTASSIUM 4.6, CHLORIDE 115, CARBON DIOXIDE 16.2, BUN 52, CREATININE 1.77, GLUCOSE 142, CALCIUM 12.8, MAGNESIUM 1.6, AST 24, ALT 18, ALK PHOS 100, TOTAL PROTEIN 7.1, ALBUMIN 3.1. BLOOD AND URINE CULTURES ARE PENDING. SHE IS CURRENTLY RECEIVING D5W @ 100ML/HR, LOVENOX 30MG SC DAILY, ROCEPHIN 1G IV DAILY, LOPRESSOR 5MG IV Q12H, PROTONIX 40MG IV DAILY. HER HOME MEDICATIONS OF CLONIDINE PATCH, MEGACE, ZYPREXA, AND RIVASTIGMINE WERE RESUMED. TODAY, WE WILL ADD MORPHINE 2MG IV Q4H PRN. WE DISCUSSED PLACEMENT OF A PEG TUBE WITH HER FAMILY, HOWEVER, THEY DO NOT WISH FOR A PEG TUBE TO BE PLACED. OTHERWISE, WE PLAN TO FOLLOW UP WITH AM LABS AND CONTINUE TO MONITOR. TIME SPENT ON CLINICAL ASSESSMENT, REVIEWING LABS AND IMAGING, DECISION MAKING, AND DOCUMENTATION GREATER THAN 75 MINUTES. - Past Medical Family Social History Past Med/Fam/Surg Hx: No changes since H&P Allergies: Allergies No Known Allergies Allergy (Verified 04/17/19 14:28) - Review of Systems ROS: No change since H&P - Vital Signs and I&O's Vital Signs: Vital Signs Temperature 97.2 F Pulse Rate 102 Pulse Rate 105 Pulse Rate 108 Respiratory Rate 22 Respiratory Rate 20 Respiratory Rate 21 Blood Pressure 108/56 Blood Pressure 105/70 Blood Pressure 116/56 Blood Pressure 104/60 Blood Pressure 108/58 Blood Pressure 105/65 O2 Sat by Pulse Oximetry 100 O2 Sat by Pulse Oximetry 100 O2 Sat by Pulse Oximetry 100 Intake and Output: Intake & Output 07/17/23 07/18/23 07/19/23 07/20/23 11:59 11:59 11:59 11:59 Intake Total 1487 / 1487 195 / 1955 Output Total 1500 / 1500 1600 / 1600 Balance - / 356 / 356 - Physical Exam Oriented: Unable to test Eyes: Normal Ear: Normal Nose: Normal Throat: Normal Respiratory: Diminished Cardiovascular: Tachycardia : Normal Auscultation: Bowel Sounds: Normal Palpation: Normal Tenderness: Normal Skin: Decreased Turgur Musculoskeletal: Normal Psychiatric: Normal Mood Description: Calm Affect: Normal Speech Pattern: Unclear, Delayed - Laboratory and Diagnostics Result Diagrams: 07/19/23 04:55 07/19/23 04:55 Labs: 07/17/23 10:45 Blood Blood Culture - Preliminary 07/17/23 09:50 Blood Blood Culture - Preliminary 07/17/23 09:56 Urine,Catheterized Urine Culture - Final Laboratory WBC 8.5 X10^3/uL (3.6-10.0) 07/19/23 04:55 RBC 4.22 X10^6/uL (3.5-5.4) 07/19/23 04:55 Hgb 13.1 g/dL (12.0-16.0) 07/19/23 04:55 Hct 37.7 % (36.0-47.0) 07/19/23 04:55 MCV 89.4 fL (80.0-100.0) 07/19/23 04:55 MCH 31.1 pg (27.0-34.0) 07/19/23 04:55 MCHC 34.8 g/dL (33.0-35.0) 07/19/23 04:55 RDW 15.8 % (11.6-16.5) 07/19/23 04:55 Plt Count 264 X10^3/uL (150.0-450.0) 07/19/23 04:55 MPV 9.0 fL (7.4-11.0) 07/19/23 04:55 Neut % (Auto) 73.4 % (42.0-75.0) 07/19/23 04:55 Lymph % (Auto) 20.6 % (21.0-51.0) L 07/19/23 04:55 [place] % (Auto) 5.5 % (0.0-13.0) 07/19/23 04:55 Eos % (Auto) 0.1 % (0.9-2.9) L 07/19/23 04:55 Baso % (Auto) 0.4 % (0.2-1.0) 07/19/23 04:55 Neut # (Auto) 6.2 x10^3/uL (2.2-4.8) H 07/19/23 04:55 Lymph # (Auto) 1.8 X10^3/uL (1.3-2.9) 07/19/23 04:55 [place] # (Auto) 0.5 x10^3/uL (0.3-0.8) 07/19/23 04:55 Eos # (Auto) 0.0 x10^3/uL (0.0-0.2) 07/19/23 04:55 Baso # (Auto) 0.0 X10^3/uL (0.0-0.1) 07/19/23 04:55 Absolute Nucleated RBC 0.0 /100WBC 07/19/23 04:55 PT 14.0 SECONDS (11.8-14.3) 07/17/23 09:50 INR Target Range - 07/17/23 09:50 INR 1.10 (0.8-1.3) 07/17/23 09:50 Sodium 144 mmol/L (136-145) 07/19/23 04:55 Corrected Sodium 145 mmol/L (136-145) 07/19/23 04:55 Potassium 4.6 mmol/L (3.5-5.1) 07/19/23 04:55 Chloride 115 mmol/L (98-107) H* 07/19/23 04:55 Carbon Dioxide 16.2 mmol/L (21-32) L 07/19/23 04:55 BUN 52 mg/dL (7-18) H 07/19/23 04:55 Creatinine 1.77 mg/dL (0.55-1.02) H 07/19/23 04:55 Est GFR (MDRD) Af Amer 35 (>60) L 07/19/23 04:55 Est GFR (MDRD) Non-Af 29 (>60) L 07/19/23 04:55 Glucose 142 mg/dL (65-99) H 07/19/23 04:55 Lactic Acid 0.4 mmol/L (0.4-2.0) 07/17/23 09:50 Calcium 12.8 mg/dL (8.5-10.1) H* 07/19/23 04:55 Corrected Calcium 13.5 mg/dL (8.5-10.1) H 07/19/23 04:55 Magnesium 1.6 mg/dL (2.0-2.9) L 07/19/23 04:55 Total Bilirubin 0.30 mg/dL (0.2-1.0) 07/19/23 04:55 AST 24 Units/L (15-37) 07/19/23 04:55 ALT 18 Units/L (12-78) 07/19/23 04:55 Alkaline Phosphatase 100 Units/L (46-116) 07/19/23 04:55 Creatine Kinase 21 Units/L (26-192) L 07/17/23 09:50 Troponin I High Sens 38.5 ng/L (4.0-60.0) 07/17/23 09:50 Total Protein 7.1 g/dL (6.4-8.2) 07/19/23 04:55 Albumin 3.1 g/dL (3.4-5.0) L 07/19/23 04:55 Globulin 4.0 g/dL (2.5-4.5) 07/19/23 04:55 Albumin/Globulin Ratio 0.8 Ratio (1.1-2.1) L 07/19/23 04:55 Specimen Type Catherized urine 07/17/23 09:56 Urine Color Straw (YELLOW) 07/17/23 09:56 Urine Appearance Cloudy (CLEAR) 07/17/23 09:56 Urine pH 5.0 (5.0 - 8.0) 07/17/23 09:56 Ur Specific [place] 1.020 (1.000-1.030) 07/17/23 09:56 Urine Protein 2+ (NEGATIVE) 07/17/23 09:56 Urine Glucose (UA) Negative (NEGATIVE) 07/17/23 09:56 Urine Ketones Negative (NEGATIVE) 07/17/23 09:56 Urine Blood 2+ (NEGATIVE) 07/17/23 09:56 Urine Nitrite Negative (NEGATIVE) 07/17/23 09:56 Urine Bilirubin Negative (NEGATIVE) 07/17/23 09:56 Urine Urobilinogen Normal (NORMAL) 07/17/23 09:56 Ur Leukocyte Esterase 3+ (NEGATIVE) 07/17/23 09:56 Urine RBC 5-10 /HPF (0-3) A 07/17/23 09:56 Urine WBC Tntc /HPF (0-5) A 07/17/23 09:56 Ur Squamous Epith Cells Few /HPF (NEGATIVE) 07/17/23 09:56 Urine Bacteria 1+ /HPF (NEGATIVE) 07/17/23 09:56 Urine Mucus Few /HPF (NEGATIVE) 07/17/23 09:56 Ur Culture Indicated? Yes/culture set up 07/17/23 09:56 - Plan (1) Acute renal failure Status: Acute Qualifiers: Acute renal failure type: unspecified Qualified Code(s): N17.9 - Acute kidney failure, unspecified Plan: D5W @ 100ML/HR, LOVENOX 30MG SC DAILY, ROCEPHIN 1G IV DAILY, MORPHINE 2MG IV Q4H PRN, LOPRESSOR 5MG IV Q12H, PROTONIX 40MG IV DAILY. RESUME HOME MEDS (2) Dehydration, mild Status: Acute (3) Urinary tract infection Status: Acute Qualifiers: Urinary tract infection type: acute cystitis Hematuria presence: without hematuria Qualified Code(s): N30.00 - Acute cystitis without hematuria (4) Altered mental status Status: Acute Qualifiers: Altered mental status type: transient alteration of awareness Qualified Code(s): R40.4 - Transient alteration of awareness (5) HTN (hypertension) Status: Chronic Qualifiers: Hypertension type: primary hypertension Qualified Code(s): I10 - Essential (primary) hypertension Plan: METOPROLOL AND HYDRALAZINE IV (6) GERD (gastroesophageal reflux disease) Status: Chronic Qualifiers: Esophagitis presence: esophagitis presence not specified Qualified Code(s): K21.9 - Gastro-esophageal reflux disease without esophagitis Plan: PROTONIX 40MG IV DAILY (7) Dementia Status: Chronic Qualifiers: Dementia type: Alzheimer's Alzheimer's disease onset: unspecified onset Dementia severity: severe Dementia behavioral or psychological symptom: with agitation Qualified Code(s): G30.9 - Alzheimer's disease, unspecified; F02.C11 - Dementia in other diseases classified elsewhere, severe, with agitation Plan: RESUME EXELON PATCH
[2023-07-20 05:35] LABS: BASOPHILS # (AUTO) 0.1 X10^3/uL (0.0-0.1); BASOPHILS % (AUTO) 0.9 % (0.2-1.0); HEMATOCRIT 36.9 % (36.0-47.0); HEMOGLOBIN 12.4 g/dL (12.0-16.0); LYMPHOCYTES # (AUTO) 2.5 X10^3/uL (1.3-2.9); LYMPHOCYTES % (AUTO) 27.9 % (21.0-51.0); MEAN CORPUSCULAR HEMOGLOBIN 30.8 pg (27.0-34.0); MEAN CORPUSCULAR HGB CONC 33.6 g/dL (33.0-35.0); MEAN CORPUSCULAR VOLUME 91.7 fL (80.0-100.0); MEAN PLATELET VOLUME 9.7 fL (7.4-11.0); MONOCYTES # (AUTO) 0.6 x10^3/uL (0.3-0.8); MONOCYTES % (AUTO) 6.5 % (0.0-13.0); NEUTROPHILS # (AUTO) 5.9 x10^3/uL (2.2-4.8); NEUTROPHILS % (AUTO) 64.7 % (42.0-75.0); PLATELET COUNT 253 X10^3/uL (150.0-450.0); RED BLOOD COUNT 4.02 X10^6/uL (3.5-5.4); RED CELL DISTRIBUTION WIDTH 15.9 % (11.6-16.5)
[2023-07-20 05:53] LABS: ALANINE AMINOTRANSFERASE 29 Units/L (12-78); ALBUMIN 2.8 g/dL (3.4-5.0); ALKALINE PHOSPHATASE 99 Units/L (46-116); ASPARTATE AMINO TRANSFERASE 34 Units/L (15-37); BLOOD UREA NITROGEN 51 mg/dL (7-18); CALCIUM 12.3 mg/dL (8.5-10.1); CARBON DIOXIDE 17.9 mmol/L (21-32); CHLORIDE 112 mmol/L (98-107); COR CA(FOR HYPOALB) 13.3 mg/dL (8.5-10.1); CREATININE 1.92 mg/dL (0.55-1.02); GLUCOSE 81 mg/dL (65-99); MAGNESIUM 1.9 mg/dL (2.0-2.9); POTASSIUM 4.7 mmol/L (3.5-5.1); SODIUM 141 mmol/L (136-145); TOTAL PROTEIN 6.3 g/dL (6.4-8.2); eGFR NON BLACK RACES 27 (>60)
[2023-07-20 05:58] LABS: WHITE BLOOD COUNT 9.1 X10^3/uL (3.6-10.0)
[2023-07-20 06:00] LABS: OVALOCYTES SLIGHT; PLATELET MORPHOLOGY COMMENT NORMAL (NORMAL)
[2023-07-20] MEDS: MAGNESIUM SULFATE IV SCH ×2 (08:43)
[2023-07-20] MEDS: D5W IV SCH ×2 (08:43)
[2023-07-20] MEDS: ROCEPHIN VIAL 1 GRAM 1 G in NS 100 ML IV 100 ML IV SCH (09:44)
[2023-07-20] MEDS: LOVENOX INJ 30 MG SYR SC SCH (09:45)
[2023-07-20] MEDS: PROTONIX INJ 40 MG VIAL IVP SCH (09:45)
[2023-07-20] MEDS: EXELON PATCH TD SCH (09:46)
--- NOTE | 2023-07-20 13:04 | PCM.PROG ---
Progress Note - Progress Note for Day of Date of Exam: 07/20/23 - Subjective Subjective: IS CURRENTLY INPATIENT STATUS FOR TREATMENT OF ACUTE RENAL FAILURE, DEHYDRATION, UTI, AND AMS. SHE HAS A PMH OF ADVANCED ALZHEIMERS, DEMENTIA, GERD, HTN, HYPOTHYROIDISM, AND HYSTERECTOMY. TODAY, SHE IS LYING IN BED WITH EYES CLOSED ON MORNING ROUNDS. SHE IS DIFFICULT TO AROUSE THIS MORNING. STAFF REPORTS THAT SHE RESTED WELL AND HAD AN UNEVENTFUL NIGHT. SHE HAS NOT BEEN ALERT ENOUGH TO EAT, DRINK, OR TAKE ANY OF HER MEDICATIONS. ON EXAMINATION, HEART IS REGULAR IN RATE AND RHYTHM. BILATERAL LUNGS ARE NOTED WITH DIMINISHED LUNG SOUNDS THROUGHOUT. ABDOMEN IS ROUND, SOFT, AND NORMAL BOWEL SOUNDS ARE NOTED IN ALL QUADRANTS. NO UPPER OR LOWER EXTREMITY EDEMA NOTED. A ESQUIVEL CATHETE R IS NOTED TO BEDSIDE DRAINAGE. HER VITALS THIS MORNING WERE: 97.8-90-20-100%-139/67. LABS WERE OBTAINED. WBC 9.1, RBC 4.02, HGB 12.4, HCT 36.9, PLT COUNT 253, SODIUM 141, POTASSIUM 4.7, CHLORIDE 112, CARBON DIOXIDE 17.9, BUN 51, CREATININE 1.92, GLUCOSE 81, CALCIUM 12.3, MAGNESIUM 1.9, AST 34, ALT 29, ALK PHOS 99, TOTAL PROTEIN 6.3, ALBUMIN 2.8. BLOOD AND URINE CULTURES ARE PENDING. SHE IS CURRENTLY RECEIVING D5W @ 100ML/HR, LOVENOX 30MG SC DAILY, ROCEPHIN 1G IV DAILY, MORPHINE 2MG IV Q4H PRN, LOPRESSOR 5MG IV Q12H, PROTONIX 40MG IV DAILY. HER HOME MEDICATIONS OF CLONIDINE PATCH, MEGACE, ZYPREXA, AND RIVASTIGMINE WERE RESUMED. WE DISCUSSED PLACEMENT OF A PEG TUBE WITH HER FAMILY, HOWEVER, THEY DO NOT WISH FOR A PEG TUBE TO BE PLACED. OTHERWISE, WE PLAN TO FOLLOW UP WITH AM LABS AND CONTINUE TO MONITOR. TIME SPENT ON CLINICAL ASSESSMENT, REVIEWING LABS AND IMAGING, DECISION MAKING, AND DOCUMENTATION GREATER THAN 45 MINUTES. - Past Medical Family Social History Past Med/Fam/Surg Hx: No changes since H&P Allergies: Allergies No Known Allergies Allergy (Verified 04/17/19 14:28) - Review of Systems ROS: No change since H&P - Vital Signs and I&O's Vital Signs: Vital Signs Temperature 97.3 F Temperature 97.8 F Pulse Rate 82 Pulse Rate 88 Pulse Rate 76 Pulse Rate 80 Pulse Rate 87 Pulse Rate 90 Pulse Rate 85 Pulse Rate 88 Pulse Rate 83 Pulse Rate 82 Pulse Rate 80 Pulse Rate 84 Respiratory Rate 24 Respiratory Rate 25 Respiratory Rate 16 Respiratory Rate 18 Respiratory Rate 19 Respiratory Rate 20 Respiratory Rate 19 Respiratory Rate 19 Respiratory Rate 18 Respiratory Rate 18 Respiratory Rate 16 Respiratory Rate 15 Blood Pressure 129/64 Blood Pressure 119/64 Blood Pressure 118/60 Blood Pressure 135/64 Blood Pressure 136/63 Blood Pressure 139/67 Blood Pressure 141/66 Blood Pressure 148/68 Blood Pressure 136/65 Blood Pressure 134/60 Blood Pressure 134/60 Blood Pressure 140/64 O2 Sat by Pulse Oximetry 100 O2 Sat by Pulse Oximetry 100 O2 Sat by Pulse Oximetry 100 O2 Sat by Pulse Oximetry 100 O2 Sat by Pulse Oximetry 100 O2 Sat by Pulse Oximetry 100 O2 Sat by Pulse Oximetry 100 O2 Sat by Pulse Oximetry 100 O2 Sat by Pulse Oximetry 100 O2 Sat by Pulse Oximetry 100 O2 Sat by Pulse Oximetry 100 O2 Sat by Pulse Oximetry 100 Intake and Output: Intake & Output 07/18/23 07/19/23 07/20/23 07/21/23 11:59 11:59 11:59 11:59 Intake Total 1487 / 1487 195 / 1956 2106 / 210 Output Total 1500 / 1500 1600 / 1600 900 / 900 Balance -13 / -13 356 / 356 1207 / 1207 - Physical Exam Oriented: Unable to test Eyes: Normal Ear: Normal Nose: Normal Throat: Normal Respiratory: Diminished Cardiovascular: Tachycardia : Normal Auscultation: Bowel Sounds: Normal Palpation: Normal Tenderness: Normal Skin: Decreased Turgur Musculoskeletal: Normal Psychiatric: Normal Mood Description: Calm Affect: Normal Speech Pattern: Unclear, Delayed - Laboratory and Diagnostics Result Diagrams: 07/20/23 04:15 07/20/23 04:15 Labs: 07/17/23 10:45 Blood Blood Culture - Preliminary 07/17/23 09:50 Blood Blood Culture - Preliminary 07/17/23 09:56 Urine,Catheterized Urine Culture - Final Laboratory WBC 9.1 X10^3/uL (3.6-10.0) 07/20/23 04:15 RBC 4.02 X10^6/uL (3.5-5.4) 07/20/23 04:15 Hgb 12.4 g/dL (12.0-16.0) 07/20/23 04:15 Hct 36.9 % (36.0-47.0) 07/20/23 04:15 MCV 91.7 fL (80.0-100.0) 07/20/23 04:15 MCH 30.8 pg (27.0-34.0) 07/20/23 04:15 MCHC 33.6 g/dL (33.0-35.0) 07/20/23 04:15 RDW 15.9 % (11.6-16.5) 07/20/23 04:15 Plt Count 253 X10^3/uL (150.0-450.0) 07/20/23 04:15 Plt Count Comment Adequate (ADEQUATE) 07/20/23 04:15 MPV 9.7 fL (7.4-11.0) 07/20/23 04:15 Neut % (Auto) 64.7 % (42.0-75.0) 07/20/23 04:15 Lymph % (Auto) 27.9 % (21.0-51.0) 07/20/23 04:15 [place] % (Auto) 6.5 % (0.0-13.0) 07/20/23 04:15 Eos % (Auto) 0.0 % (0.9-2.9) L 07/20/23 04:15 Baso % (Auto) 0.9 % (0.2-1.0) 07/20/23 04:15 Neut # (Auto) 5.9 x10^3/uL (2.2-4.8) H 07/20/23 04:15 Lymph # (Auto) 2.5 X10^3/uL (1.3-2.9) 07/20/23 04:15 [place] # (Auto) 0.6 x10^3/uL (0.3-0.8) 07/20/23 04:15 Eos # (Auto) 0.0 x10^3/uL (0.0-0.2) 07/20/23 04:15 Baso # (Auto) 0.1 X10^3/uL (0.0-0.1) 07/20/23 04:15 Absolute Nucleated RBC 0.1 /100WBC 07/20/23 04:15 Plt Clumps, EDTA Rare 07/20/23 04:15 Plt Morphology Comment Normal (NORMAL) 07/20/23 04:15 RBC Morphology Abnormal (NORMAL) A 07/20/23 04:15 Ovalocytes Slight A 07/20/23 04:15 PT 14.0 SECONDS (11.8-14.3) 07/17/23 09:50 INR Target Range - 07/17/23 09:50 INR 1.10 (0.8-1.3) 07/17/23 09:50 Sodium 141 mmol/L (136-145) 07/20/23 04:15 Corrected Sodium TNP 07/20/23 04:15 Potassium 4.7 mmol/L (3.5-5.1) 07/20/23 04:15 Chloride 112 mmol/L (98-107) H 07/20/23 04:15 Carbon Dioxide 17.9 mmol/L (21-32) L 07/20/23 04:15 BUN 51 mg/dL (7-18) H 07/20/23 04:15 Creatinine 1.92 mg/dL (0.55-1.02) H 07/20/23 04:15 Est GFR (MDRD) Af Amer 32 (>60) L 07/20/23 04:15 Est GFR (MDRD) Non-Af 27 (>60) L 07/20/23 04:15 Glucose 81 mg/dL (65-99) 07/20/23 04:15 Lactic Acid 0.4 mmol/L (0.4-2.0) 07/17/23 09:50 Calcium 12.3 mg/dL (8.5-10.1) H 07/20/23 04:15 Corrected Calcium 13.3 mg/dL (8.5-10.1) H 07/20/23 04:15 Magnesium 1.9 mg/dL (2.0-2.9) L 07/20/23 04:15 Total Bilirubin 0.30 mg/dL (0.2-1.0) 07/20/23 04:15 AST 34 Units/L (15-37) 07/20/23 04:15 ALT 29 Units/L (12-78) 07/20/23 04:15 Alkaline Phosphatase 99 Units/L (46-116) 07/20/23 04:15 Creatine Kinase 21 Units/L (26-192) L 07/17/23 09:50 Troponin I High Sens 38.5 ng/L (4.0-60.0) 07/17/23 09:50 Total Protein 6.3 g/dL (6.4-8.2) L 07/20/23 04:15 Albumin 2.8 g/dL (3.4-5.0) L 07/20/23 04:15 Globulin 3.5 g/dL (2.5-4.5) 07/20/23 04:15 Albumin/Globulin Ratio 0.8 Ratio (1.1-2.1) L 07/20/23 04:15 Specimen Type Catherized urine 07/17/23 09:56 Urine Color Straw (YELLOW) 07/17/23 09:56 Urine Appearance Cloudy (CLEAR) 07/17/23 09:56 Urine pH 5.0 (5.0 - 8.0) 07/17/23 09:56 Ur Specific [place] 1.020 (1.000-1.030) 07/17/23 09:56 Urine Protein 2+ (NEGATIVE) 07/17/23 09:56 Urine Glucose (UA) Negative (NEGATIVE) 07/17/23 09:56 Urine Ketones Negative (NEGATIVE) 07/17/23 09:56 Urine Blood 2+ (NEGATIVE) 07/17/23 09:56 Urine Nitrite Negative (NEGATIVE) 07/17/23 09:56 Urine Bilirubin Negative (NEGATIVE) 07/17/23 09:56 Urine Urobilinogen Normal (NORMAL) 07/17/23 09:56 Ur Leukocyte Esterase 3+ (NEGATIVE) 07/17/23 09:56 Urine RBC 5-10 /HPF (0-3) A 07/17/23 09:56 Urine WBC Tntc /HPF (0-5) A 07/17/23 09:56 Ur Squamous Epith Cells Few /HPF (NEGATIVE) 07/17/23 09:56 Urine Bacteria 1+ /HPF (NEGATIVE) 07/17/23 09:56 Urine Mucus Few /HPF (NEGATIVE) 07/17/23 09:56 Ur Culture Indicated? Yes/culture set up 07/17/23 09:56 - Plan (1) Acute renal failure Status: Acute Qualifiers: Acute renal failure type: unspecified Qualified Code(s): N17.9 - Acute kidney failure, unspecified Plan: D5W @ 100ML/HR, LOVENOX 30MG SC DAILY, ROCEPHIN 1G IV DAILY, MORPHINE 2MG IV Q4H PRN, LOPRESSOR 5MG IV Q12H, PROTONIX 40MG IV DAILY. RESUME HOME MEDS (2) Dehydration, mild Status: Acute (3) Urinary tract infection Status: Acute Qualifiers: Urinary tract infection type: acute cystitis Hematuria presence: without hematuria Qualified Code(s): N30.00 - Acute cystitis without hematuria (4) Altered mental status Status: Acute Qualifiers: Altered mental status type: transient alteration of awareness Qualified Code(s): R40.4 - Transient alteration of awareness (5) HTN (hypertension) Status: Chronic Qualifiers: Hypertension type: primary hypertension Qualified Code(s): I10 - Essential (primary) hypertension Plan: METOPROLOL AND HYDRALAZINE IV (6) GERD (gastroesophageal reflux disease) Status: Chronic Qualifiers: Esophagitis presence: esophagitis presence not specified Qualified Code(s): K21.9 - Gastro-esophageal reflux disease without esophagitis Plan: PROTONIX 40MG IV DAILY (7) Dementia Status: Chronic Qualifiers: Dementia type: Alzheimer's Alzheimer's disease onset: unspecified onset Dementia severity: severe Dementia behavioral or psychological symptom: with agitation Qualified Code(s): G30.9 - Alzheimer's disease, unspecified; F02.C11 - Dementia in other diseases classified elsewhere, severe, with agitation Plan: RESUME EXELON PATCH
[2023-07-20] MEDS: LOPRESSOR INJ 5 MG AMP IVP SCH ×2 (16:48→22:00)
[2023-07-21 05:22] LABS: BASOPHILS % (AUTO) 0.2 % (0.2-1.0); EOSINOPHILS % (AUTO) 0.1 % (0.9-2.9); HEMATOCRIT 34.7 % (36.0-47.0); HEMOGLOBIN 11.8 g/dL (12.0-16.0); LYMPHOCYTES # (AUTO) 1.4 X10^3/uL (1.3-2.9); LYMPHOCYTES % (AUTO) 24.4 % (21.0-51.0); MEAN CORPUSCULAR HGB CONC 34.1 g/dL (33.0-35.0); MEAN CORPUSCULAR VOLUME 90.9 fL (80.0-100.0); MEAN PLATELET VOLUME 9.1 fL (7.4-11.0); MONOCYTES # (AUTO) 0.3 x10^3/uL (0.3-0.8); MONOCYTES % (AUTO) 6.1 % (0.0-13.0); NEUTROPHILS # (AUTO) 3.9 x10^3/uL (2.2-4.8); NEUTROPHILS % (AUTO) 69.2 % (42.0-75.0); PLATELET COUNT 248 X10^3/uL (150.0-450.0); RED BLOOD COUNT 3.82 X10^6/uL (3.5-5.4); RED CELL DISTRIBUTION WIDTH 15.8 % (11.6-16.5); WHITE BLOOD COUNT 5.6 X10^3/uL (3.6-10.0)
[2023-07-21 05:38] LABS: ALANINE AMINOTRANSFERASE 27 Units/L (12-78); ALBUMIN 2.9 g/dL (3.4-5.0); ALKALINE PHOSPHATASE 109 Units/L (46-116); ASPARTATE AMINO TRANSFERASE 22 Units/L (15-37); BLOOD UREA NITROGEN 44 mg/dL (7-18); CARBON DIOXIDE 19.7 mmol/L (21-32); CHLORIDE 111 mmol/L (98-107); COR CA(FOR HYPOALB) 13.4 mg/dL (8.5-10.1); CREATININE 1.88 mg/dL (0.55-1.02); GLUCOSE 78 mg/dL (65-99); MAGNESIUM 2.1 mg/dL (2.0-2.9); POTASSIUM 4.7 mmol/L (3.5-5.1); SODIUM 140 mmol/L (136-145); TOTAL PROTEIN 6.6 g/dL (6.4-8.2); eGFR NON BLACK RACES 27 (>60)
[2023-07-21 05:46] LABS: CALCIUM 12.5 mg/dL (8.5-10.1)
[2023-07-21] MEDS: ROCEPHIN VIAL 1 GRAM 1 G in NS 100 ML IV 100 ML IV SCH (08:59)
[2023-07-21] MEDS: EXELON PATCH TD SCH (08:59)
[2023-07-21] MEDS: PROTONIX INJ 40 MG VIAL IVP SCH (08:59)
[2023-07-21] MEDS: LOVENOX INJ 30 MG SYR SC SCH (08:59)
[2023-07-21] MEDS: LOPRESSOR INJ 5 MG AMP IVP SCH ×2 (08:59→21:28)
[2023-07-21] MEDS: MAGNESIUM SULFATE IV SCH ×2 (09:07)
[2023-07-21] MEDS: D5W IV SCH ×2 (09:07)
[2023-07-22 05:17] LABS: BASOPHILS % (AUTO) 0.3 % (0.2-1.0); EOSINOPHILS % (AUTO) 0.1 % (0.9-2.9); HEMOGLOBIN 11.7 g/dL (12.0-16.0); LYMPHOCYTES # (AUTO) 1.2 X10^3/uL (1.3-2.9); LYMPHOCYTES % (AUTO) 25.4 % (21.0-51.0); MEAN CORPUSCULAR HEMOGLOBIN 31.2 pg (27.0-34.0); MEAN CORPUSCULAR HGB CONC 34.4 g/dL (33.0-35.0); MEAN CORPUSCULAR VOLUME 90.7 fL (80.0-100.0); MEAN PLATELET VOLUME 9.3 fL (7.4-11.0); MONOCYTES # (AUTO) 0.3 x10^3/uL (0.3-0.8); MONOCYTES % (AUTO) 7.1 % (0.0-13.0); NEUTROPHILS # (AUTO) 3.1 x10^3/uL (2.2-4.8); NEUTROPHILS % (AUTO) 67.1 % (42.0-75.0); PLATELET COUNT 237 X10^3/uL (150.0-450.0); RED BLOOD COUNT 3.75 X10^6/uL (3.5-5.4); RED CELL DISTRIBUTION WIDTH 15.2 % (11.6-16.5); WHITE BLOOD COUNT 4.6 X10^3/uL (3.6-10.0)
[2023-07-22 05:28] LABS: ALANINE AMINOTRANSFERASE 22 Units/L (12-78); ALBUMIN 2.7 g/dL (3.4-5.0); ALKALINE PHOSPHATASE 109 Units/L (46-116); ASPARTATE AMINO TRANSFERASE 19 Units/L (15-37); BLOOD UREA NITROGEN 38 mg/dL (7-18); CALCIUM 12.3 mg/dL (8.5-10.1); CHLORIDE 109 mmol/L (98-107); COR CA(FOR HYPOALB) 13.3 mg/dL (8.5-10.1); CREATININE 1.63 mg/dL (0.55-1.02); GLUCOSE 75 mg/dL (65-99); POTASSIUM 4.7 mmol/L (3.5-5.1); SODIUM 137 mmol/L (136-145); TOTAL PROTEIN 6.3 g/dL (6.4-8.2); eGFR NON BLACK RACES 32 (>60)
[2023-07-22] MEDS: D5W IV SCH ×2 (08:52)
[2023-07-22] MEDS: MAGNESIUM SULFATE IV SCH ×2 (08:52)
[2023-07-22] MEDS: PROTONIX INJ 40 MG VIAL IVP SCH (08:53)
[2023-07-22] MEDS: LOPRESSOR INJ 5 MG AMP IVP SCH ×2 (08:53→20:35)
[2023-07-22] MEDS: LOVENOX INJ 30 MG SYR SC SCH (08:54)
[2023-07-22] MEDS: ROCEPHIN VIAL 1 GRAM 1 G in NS 100 ML IV 100 ML IV SCH (08:55)
[2023-07-22] MEDS: EXELON PATCH TD SCH (09:06)
[2023-07-22] MEDS ORDERED: NS 1,000 ML IV 1,000 ML IV ONE (11:58)
[2023-07-23 05:11] LABS: BASOPHILS % (AUTO) 0.4 % (0.2-1.0); EOSINOPHILS % (AUTO) 0.1 % (0.9-2.9); HEMATOCRIT 34.1 % (36.0-47.0); HEMOGLOBIN 11.7 g/dL (12.0-16.0); LYMPHOCYTES # (AUTO) 1.2 X10^3/uL (1.3-2.9); LYMPHOCYTES % (AUTO) 28.2 % (21.0-51.0); MEAN CORPUSCULAR HEMOGLOBIN 30.8 pg (27.0-34.0); MEAN CORPUSCULAR HGB CONC 34.3 g/dL (33.0-35.0); MEAN CORPUSCULAR VOLUME 89.7 fL (80.0-100.0); MEAN PLATELET VOLUME 8.9 fL (7.4-11.0); MONOCYTES # (AUTO) 0.3 x10^3/uL (0.3-0.8); MONOCYTES % (AUTO) 7.1 % (0.0-13.0); NEUTROPHILS # (AUTO) 2.8 x10^3/uL (2.2-4.8); NEUTROPHILS % (AUTO) 64.2 % (42.0-75.0); PLATELET COUNT 259 X10^3/uL (150.0-450.0); RED BLOOD COUNT 3.81 X10^6/uL (3.5-5.4); RED CELL DISTRIBUTION WIDTH 15.4 % (11.6-16.5); WHITE BLOOD COUNT 4.3 X10^3/uL (3.6-10.0)
[2023-07-23 05:29] LABS: ALANINE AMINOTRANSFERASE 23 Units/L (12-78); ALBUMIN 2.7 g/dL (3.4-5.0); ALKALINE PHOSPHATASE 109 Units/L (46-116); ASPARTATE AMINO TRANSFERASE 20 Units/L (15-37); BLOOD UREA NITROGEN 29 mg/dL (7-18); CALCIUM 11.9 mg/dL (8.5-10.1); CARBON DIOXIDE 18.8 mmol/L (21-32); CHLORIDE 108 mmol/L (98-107); COR CA(FOR HYPOALB) 12.9 mg/dL (8.5-10.1); CREATININE 1.52 mg/dL (0.55-1.02); GLUCOSE 99 mg/dL (65-99); POTASSIUM 4.5 mmol/L (3.5-5.1); SODIUM 137 mmol/L (136-145); TOTAL PROTEIN 6.3 g/dL (6.4-8.2); eGFR NON BLACK RACES 35 (>60)
[2023-07-23] MEDS: MAGNESIUM SULFATE IV SCH ×4 (06:17→09:44)
[2023-07-23] MEDS: D5W IV SCH ×4 (06:17→09:44)
[2023-07-23] MEDS: LOPRESSOR INJ 5 MG AMP IVP SCH ×2 (08:57→20:13)
[2023-07-23] MEDS: ROCEPHIN VIAL 1 GRAM 1 G in NS 100 ML IV 100 ML IV SCH (08:57)
[2023-07-23] MEDS: LOVENOX INJ 30 MG SYR SC SCH (08:57)
[2023-07-23] MEDS: PROTONIX INJ 40 MG VIAL IVP SCH (08:57)
[2023-07-23] MEDS: EXELON PATCH TD SCH (08:58)
[2023-07-23] MEDS ORDERED: VASOTEC INJ 2.5 MG VIAL IVP PRN (10:00)
[2023-07-23] MEDS ORDERED: NS 1,000 ML IV 1,000 ML IV ONE (10:01)
[2023-07-23] MEDS: NS 1,000 ML IV 1,000 ML IV SCH ×2 (13:20→21:29)
[2023-07-23] MEDS: MORPHINE SULFATE INJ 2 MG INJ IVP PRN (20:13)
[2023-07-24] MEDS: MORPHINE SULFATE INJ 2 MG INJ IVP PRN (02:48)
[2023-07-24] MEDS: NS 1,000 ML IV 1,000 ML IV SCH ×4 (03:24→22:06)
[2023-07-24 05:20] LABS: BASOPHILS % (AUTO) 0.5 % (0.2-1.0); EOSINOPHILS % (AUTO) 0.1 % (0.9-2.9); HEMATOCRIT 30.1 % (36.0-47.0); HEMOGLOBIN 10.4 g/dL (12.0-16.0); LYMPHOCYTES # (AUTO) 1.5 X10^3/uL (1.3-2.9); LYMPHOCYTES % (AUTO) 31.9 % (21.0-51.0); MEAN CORPUSCULAR HEMOGLOBIN 31.1 pg (27.0-34.0); MEAN CORPUSCULAR HGB CONC 34.5 g/dL (33.0-35.0); MEAN CORPUSCULAR VOLUME 90.3 fL (80.0-100.0); MONOCYTES # (AUTO) 0.4 x10^3/uL (0.3-0.8); MONOCYTES % (AUTO) 7.9 % (0.0-13.0); NEUTROPHILS # (AUTO) 2.9 x10^3/uL (2.2-4.8); NEUTROPHILS % (AUTO) 59.6 % (42.0-75.0); PLATELET COUNT 234 X10^3/uL (150.0-450.0); RED BLOOD COUNT 3.33 X10^6/uL (3.5-5.4); RED CELL DISTRIBUTION WIDTH 15.7 % (11.6-16.5); WHITE BLOOD COUNT 4.8 X10^3/uL (3.6-10.0)
[2023-07-24 05:47] LABS: ALANINE AMINOTRANSFERASE 21 Units/L (12-78); ALBUMIN 2.4 g/dL (3.4-5.0); ALKALINE PHOSPHATASE 99 Units/L (46-116); ASPARTATE AMINO TRANSFERASE 22 Units/L (15-37); BLOOD UREA NITROGEN 21 mg/dL (7-18); CALCIUM 11.2 mg/dL (8.5-10.1); CHLORIDE 111 mmol/L (98-107); COR CA(FOR HYPOALB) 12.5 mg/dL (8.5-10.1); CREATININE 1.18 mg/dL (0.55-1.02); GLUCOSE 68 mg/dL (65-99); POTASSIUM 4.4 mmol/L (3.5-5.1); SODIUM 138 mmol/L (136-145); TOTAL PROTEIN 5.6 g/dL (6.4-8.2); eGFR NON BLACK RACES 47 (>60)
[2023-07-24] MEDS ORDERED: VERSED 100 MG in NS 100 ML IV 80 ML IV PRN (09:57)
[2023-07-24] MEDS ORDERED: MORPHINE SULFATE PCA 30 MG IVP PRN (09:57)
--- NOTE | 2023-07-24 12:47 | PCM.PROG ---
Progress Note - Progress Note for Day of Date of Exam: 07/21/23 - Subjective Subjective: IS CURRENTLY INPATIENT STATUS FOR TREATMENT OF ACUTE RENAL FAILURE, DEHYDRATION, UTI, AND AMS. SHE HAS A PMH OF ADVANCED ALZHEIMERS, DEMENTIA, GERD, HTN, HYPOTHYROIDISM, AND HYSTERECTOMY. TODAY, SHE IS LYING IN BED WITH EYES CLOSED ON MORNING ROUNDS. SHE IS DIFFICULT TO AROUSE THIS MORNING. SHE IS NON-VERBAL AND DOES NOT FOLLOW COMMANDS. STAFF REPORTS THAT SHE HAS RESTED WELL AND HAD AN UNEVENTFUL NIGHT. SHE HAS NOT BEEN ALERT ENOUGH TO EAT, DRINK, OR TAKE ANY OF HER MEDICATIONS. ON EXAMINATION, HEART IS REGULAR IN RATE AND RHYTHM. BILATERAL LUNGS ARE NOTED WITH DIMINISHED LUNG SOUNDS THROUGHOUT. ABDOMEN IS ROUND, SOFT, AND NORMAL BOWEL SOUNDS ARE NOTED IN ALL QUADRANTS. NO U PPER OR LOWER EXTREMITY EDEMA NOTED. A ESQUIVEL CATHETER IS NOTED TO BEDSIDE DRAINAGE. HER VITALS THIS MORNING WERE: 96.7-87-25-100%-166/73. LABS WERE OBTAINED. WBC 5.6, RBC 3.82, HGB 11.8, HCT 34.7, PLT COUNT 248, SODIUM 140, POTASSIUM 4.7, CHLORIDE 111, CARBON DIOXIDE 19.7, BUN 44, CREATININE 1.88, C ALCIUM 12.5, MAGNESIUM 2.1, AST 22, ALT 27, ALK PHOS 109, TOTAL PROTEIN 6.6, ALBUMIN 2.9. SHE IS CURRENTLY RECEIVING D5W @ 100ML/HR, LOVENOX 30MG SC DAILY, ROCEPHIN 1G IV DAILY, MORPHINE 2MG IV Q4H PRN, LOPRESSOR 5MG IV Q12H, PROTONIX 40MG IV DAILY. HER HOME MEDICATIONS OF CLONIDINE PATCH AND A RIVASTIGMINE WERE RESUMED. FAMILY HAD QUESTIONS ABOUT COMFORT MEASURES AT THE HOSPITAL VS HOSPICE AT THE CARE HOME. WE DISCUSSED OPTIONS. FAMILY WISHES TO CONTINUE WITH CURRENT PLAN OF CARE FOR NOW. OTHERWISE, WE PLAN TO FOLLOW UP WITH AM LABS AND CONTINUE TO MONITOR. TIME SPENT ON CLINICAL ASSESSMENT, REVIEWING LABS AND IMAGING, DECISION MAKING, AND DOCUMENTATION GREATER THAN 45 MINUTES. - Past Medical Family Social History Past Med/Fam/Surg Hx: No changes since H&P Allergies: Allergies No Known Allergies Allergy (Verified 04/17/19 14:28) - Review of Systems ROS: No change since H&P - Vital Signs and I&O's Vital Signs: Vital Signs Temperature 96.6 F Pulse Rate 82 Respiratory Rate 20 Blood Pressure 182/81 Intake and Output: Intake & Output 07/22/23 07/23/23 07/24/23 07/25/23 11:59 11:59 11:59 11:59 Intake Total 1000 / 1000 2235 / 2235 2403 / 2403 Output Total 1500 / 1500 1375 / 1375 900 / 900 Balance -500 / -500 860 / 860 1503 / 1503 - Physical Exam Oriented: Unable to test Eyes: Normal Ear: Normal Nose: Normal Throat: Normal Respiratory: Diminished Cardiovascular: Tachycardia : Normal Auscultation: Bowel Sounds: Normal Tenderness: Normal Skin: Decreased Turgur Musculoskeletal: Normal Psychiatric: Normal Mood Description: Calm Affect: Normal Speech Pattern: Unclear, Delayed - Laboratory and Diagnostics Result Diagrams: 07/24/23 04:26 07/24/23 04:26 Labs: 07/17/23 10:45 Blood Blood Culture - Final 07/17/23 09:50 Blood Blood Culture - Final 07/17/23 09:56 Urine,Catheterized Urine Culture - Final Laboratory WBC 4.8 X10^3/uL (3.6-10.0) 07/24/23 04:26 RBC 3.33 X10^6/uL (3.5-5.4) L 07/24/23 04:26 Hgb 10.4 g/dL (12.0-16.0) L 07/24/23 04:26 Hct 30.1 % (36.0-47.0) L 07/24/23 04:26 MCV 90.3 fL (80.0-100.0) 07/24/23 04:26 MCH 31.1 pg (27.0-34.0) 07/24/23 04:26 MCHC 34.5 g/dL (33.0-35.0) 07/24/23 04:26 RDW 15.7 % (11.6-16.5) 07/24/23 04:26 Plt Count 234 X10^3/uL (150.0-450.0) 07/24/23 04:26 Plt Count Comment Adequate (ADEQUATE) 07/20/23 04:15 MPV 9.0 fL (7.4-11.0) 07/24/23 04:26 Neut % (Auto) 59.6 % (42.0-75.0) 07/24/23 04:26 Lymph % (Auto) 31.9 % (21.0-51.0) 07/24/23 04:26 [place] % (Auto) 7.9 % (0.0-13.0) 07/24/23 04:26 Eos % (Auto) 0.1 % (0.9-2.9) L 07/24/23 04:26 Baso % (Auto) 0.5 % (0.2-1.0) 07/24/23 04:26 Neut # (Auto) 2.9 x10^3/uL (2.2-4.8) 07/24/23 04:26 Lymph # (Auto) 1.5 X10^3/uL (1.3-2.9) 07/24/23 04:26 Perkins # (Auto) 0.4 x10^3/uL (0.3-0.8) 07/24/23 04:26 Eos # (Auto) 0.0 x10^3/uL (0.0-0.2) 07/24/23 04:26 Baso # (Auto) 0.0 X10^3/uL (0.0-0.1) 07/24/23 04:26 Absolute Nucleated RBC 0.1 /100WBC 07/24/23 04:26 Plt Clumps, EDTA Rare 07/20/23 04:15 Plt Morphology Comment Normal (NORMAL) 07/20/23 04:15 RBC Morphology Abnormal (NORMAL) A 07/20/23 04:15 Ovalocytes Slight A 07/20/23 04:15 PT 14.0 SECONDS (11.8-14.3) 07/17/23 09:50 INR Target Range - 07/17/23 09:50 INR 1.10 (0.8-1.3) 07/17/23 09:50 Sodium 138 mmol/L (136-145) 07/24/23 04:26 Corrected Sodium TNP 07/24/23 04:26 Potassium 4.4 mmol/L (3.5-5.1) 07/24/23 04:26 Chloride 111 mmol/L (98-107) H 07/24/23 04:26 Carbon Dioxide 19.0 mmol/L (21-32) L 07/24/23 04:26 BUN 21 mg/dL (7-18) H 07/24/23 04:26 Creatinine 1.18 mg/dL (0.55-1.02) H 07/24/23 04:26 Est GFR (MDRD) Af Amer 57 (>60) L 07/24/23 04:26 Est GFR (MDRD) Non-Af 47 (>60) L 07/24/23 04:26 Glucose 68 mg/dL (65-99) 07/24/23 04:26 Lactic Acid 0.4 mmol/L (0.4-2.0) 07/17/23 09:50 Calcium 11.2 mg/dL (8.5-10.1) H 07/24/23 04:26 Corrected Calcium 12.5 mg/dL (8.5-10.1) H 07/24/23 04:26 Magnesium 2.1 mg/dL (2.0-2.9) 07/21/23 04:03 Total Bilirubin 0.20 mg/dL (0.2-1.0) 07/24/23 04:26 AST 22 Units/L (15-37) 07/24/23 04:26 ALT 21 Units/L (12-78) 07/24/23 04:26 Alkaline Phosphatase 99 Units/L (46-116) 07/24/23 04:26 Creatine Kinase 21 Units/L (26-192) L 07/17/23 09:50 Troponin I High Sens 38.5 ng/L (4.0-60.0) 07/17/23 09:50 Total Protein 5.6 g/dL (6.4-8.2) L 07/24/23 04:26 Albumin 2.4 g/dL (3.4-5.0) L 07/24/23 04:26 Globulin 3.2 g/dL (2.5-4.5) 07/24/23 04:26 Albumin/Globulin Ratio 0.8 Ratio (1.1-2.1) L 07/24/23 04:26 Specimen Type Catherized urine 07/17/23 09:56 Urine Color Straw (YELLOW) 07/17/23 09:56 Urine Appearance Cloudy (CLEAR) 07/17/23 09:56 Urine pH 5.0 (5.0 - 8.0) 07/17/23 09:56 Ur Specific [place] 1.020 (1.000-1.030) 07/17/23 09:56 Urine Protein 2+ (NEGATIVE) 07/17/23 09:56 Urine Glucose (UA) Negative (NEGATIVE) 07/17/23 09:56 Urine Ketones Negative (NEGATIVE) 07/17/23 09:56 Urine Blood 2+ (NEGATIVE) 07/17/23 09:56 Urine Nitrite Negative (NEGATIVE) 07/17/23 09:56 Urine Bilirubin Negative (NEGATIVE) 07/17/23 09:56 Urine Urobilinogen Normal (NORMAL) 07/17/23 09:56 Ur Leukocyte Esterase 3+ (NEGATIVE) 07/17/23 09:56 Urine RBC 5-10 /HPF (0-3) A 07/17/23 09:56 Urine WBC Tntc /HPF (0-5) A 07/17/23 09:56 Ur Squamous Epith Cells Few /HPF (NEGATIVE) 07/17/23 09:56 Urine Bacteria 1+ /HPF (NEGATIVE) 07/17/23 09:56 Urine Mucus Few /HPF (NEGATIVE) 07/17/23 09:56 Ur Culture Indicated? Yes/culture set up 07/17/23 09:56 - Plan (1) Acute renal failure Status: Acute Qualifiers: Acute renal failure type: unspecified Qualified Code(s): N17.9 - Acute kidney failure, unspecified Plan: D5W @ 100ML/HR, LOVENOX 30MG SC DAILY, ROCEPHIN 1G IV DAILY, MORPHINE 2MG IV Q4H PRN, LOPRESSOR 5MG IV Q12H, PROTONIX 40MG IV DAILY. RESUME HOME MEDS (2) Dehydration, mild Status: Acute (3) Urinary tract infection Status: Acute Qualifiers: Urinary tract infection type: acute cystitis Hematuria presence: without hematuria Qualified Code(s): N30.00 - Acute cystitis without hematuria (4) Altered mental status Status: Acute Qualifiers: Altered mental status type: transient alteration of awareness Qualified Code(s): R40.4 - Transient alteration of awareness (5) HTN (hypertension) Status: Chronic Qualifiers: Hypertension type: primary hypertension Qualified Code(s): I10 - Essential (primary) hypertension Plan: METOPROLOL AND HYDRALAZINE IV (6) GERD (gastroesophageal reflux disease) Status: Chronic Qualifiers: Esophagitis presence: esophagitis presence not specified Qualified Code(s): K21.9 - Gastro-esophageal reflux disease without esophagitis Plan: PROTONIX 40MG IV DAILY (7) Dementia Status: Chronic Qualifiers: Dementia type: Alzheimer's Alzheimer's disease onset: unspecified onset Dementia severity: severe Dementia behavioral or psychological symptom: with agitation Qualified Code(s): G30.9 - Alzheimer's disease, unspecified; F02.C11 - Dementia in other diseases classified elsewhere, severe, with agitation Plan: RESUME EXELON PATCH
[2023-07-24 16:10] VITALS: TEMP 96.8
[2023-07-24] MEDS: MORPHINE SULFATE PCA 30 MG IVP PRN ×2 (18:08→22:00)
[2023-07-25] MEDS: NS 1,000 ML IV 1,000 ML IV SCH (03:18)
[2023-07-25] MEDS: MORPHINE SULFATE PCA 30 MG IVP PRN (05:12)
[2023-07-25] MEDS ORDERED: MORPHINE SULFATE PCA 30 MG IVP PRN (07:37)
[2023-07-25 10:18] VITALS: RESP 11
[2023-07-25] MEDS ORDERED: VERSED 100 MG in NS 100 ML IV 80 ML IV PRN (10:20)
[2023-07-25 10:46] VITALS: BP 55/33; PULSE 85; O2SAT 91
== END 2023-07-25 11:35 | disposition expired | DRG 683 ==
LOC: ER 09:40 → ICU 09:40 → OBSVTOIN 12:55 → ICU 13:43 → MED/SURG 07-22 17:00
PROVIDERS: ADMIT Internal Medicine; ATTEND Internal Medicine
DX: I10 Essential (primary) hypertension; F02.C11 Dementia in other diseases classified elsewhere, severe, with agitation; E86.0 Dehydration; R40.4 Transient alteration of awareness; K21.9 Gastro-esophageal reflux disease without esophagitis; E03.8 Other specified hypothyroidism; R00.0 Tachycardia, unspecified; N17.8 Other acute kidney failure; N30.00 Acute cystitis without hematuria; I46.8 Cardiac arrest due to other underlying condition; G30.8 Other Alzheimer's disease; Z66 Do not resuscitate